=== PATIENT | male | born 1950 | race Caucasian/White ===

== ENCOUNTER → 2017-12-30 09:23 | Outpatient (CLI) | payer MEDICARE, BC, SELFPAY ==
[2017-12-30 12:48] LABS: Absolute Lymphocyte Count 1.57 X10^3/ul (0.83-4.51); Absolute Neutrophil Count 4.5 X10^3/uL (2.0-7.7); Basophil# 0.04 X10^3/uL; Basophil% 0.6 % (0-1); Eosinophil# 0.09 X10^3/uL; Eosinophils% 1.3 % (0-5); Hemoglobin 15.6 g/dl (13.0-16.5); Lymphocyte # 1.57 X10^3/ul (4.0); Mean Corp Hgb Conc 34.7 g/gl (32-36); Mean Corpuscular Hgb 30.4 pg (27.0-32.0); Mean Corpuscular Volume 87.5 fL (80-94); Mean Platelet Vol. 9.1 fl (6.2-12.0); Monocyte# 0.63 X10^3/uL; Monocyte% 9.2 % (0-10); Neutrophil # 4.49 X10^3/uL (2.7-7.7); Neutrophil % 65.8 % (47-70); Platelet Count 403 K/mm3 (150-450); RBC Distribution Width CV 12.6 % (11.6-14.6); Red Blood Count 5.14 M/mm3 (4.6-6.2); White Blood Count 6.8 K/mm3 (4.4-11.0)
[2017-12-30 12:51] LABS: POSITIVE COUNT NO; POSITIVE DIFFERENTIAL NO; POSITIVE MORPHOLOGY NO
[2017-12-30 13:05] LABS: AST(SGOT) 20 U/L (15-37); Alanine Aminotransfer ALT/SGPT 35 U/L (16-61); Albumin, Serum 4.2 g/dL (3.2-5.0); Alkaline Phosphatase 111 U/L (45-117); Anion Gap 6 (5-15); BUN 12 mg/dL (7-18); Calcium,Total 9.4 mg/dL (8.5-10.1); Chloride 94 mmol/L (98-107); EST Glomerular Filtration Rate 80 mL/min (>60); Est Glom Filt Rate - Afr Amer 96 mL/min (>60); Globulin 4.2 g/dL (2.2-4.2); Glucose 123 mg/dL (74-106); Potassium 4.6 mmol/L (3.5-5.1); Protein, Total 8.4 g/dL (6.4-8.2); Sodium Level 130 mmol/L (136-145); Thyroid Stim Hormone (TSH) 1.43 uIU/mL (0.358-3.74)
[2017-12-30 13:06] LABS: Vitamin D,25 Hydroxy 23.1 ng/mL (29.95-100.01)
== END ==
PROVIDERS: Family Provider Family Medicine Geriatric Medicine; PCP Family Medicine Geriatric Medicine; Visit Provider Family Medicine Geriatric Medicine
DX: I10 Essential (primary) hypertension (principal); E55.9 Vitamin D deficiency, unspecified
CPT/HCPCS: 36415; 80053; 82306; 84443; 85025

== ENCOUNTER → 2018-07-31 12:36 | Outpatient (CLI) | payer MEDICARE, BC, SELFPAY ==
--- NOTE | 2018-07-31 12:43 | RAD_ITS ---
STUDY: X-RAY CHEST REASON FOR EXAM: Male, 67 years old. Cough and shortness of breath. TECHNIQUE: PA and lateral views of the chest. COMPARISON: None. FINDINGS: Hyperinflation. No acute infiltrate is seen. Blunting of both costophrenic angles posteriorly. Normal size heart. Normal mediastinum and raymond. Normal visualized pulmonary arteries. There is atherosclerotic calcification of the aortic arch with tortuosity. There is demineralization of the osseous structures. Normal visualized ribs, clavicles, and shoulders. There is no demonstrated abnormality of the visualized soft tissue structures of the upper abdomen. RAD/Chest PA and Lateral IMPRESSION: Hyperinflation. No acute abnormality is seen. Electronically Signed: Zaki Martin MD at 13:56 EST , Service support ,
== END ==
PROVIDERS: Family Provider Family Medicine Geriatric Medicine; PCP Family Medicine Geriatric Medicine; Referring Provider Family Medicine Geriatric Medicine; Visit Provider Family Medicine Geriatric Medicine
DX: R06.02 Shortness of breath (principal); R50.9 Fever, unspecified
CPT/HCPCS: 71046; 87633

== ENCOUNTER → 2018-08-28 11:31 | Outpatient (CLI) | payer MEDICARE, BC, SELFPAY ==
[2018-08-28 14:23] LABS: Absolute Lymphocyte Count 1.65 X10^3/ul (0.83-4.51); Absolute Neutrophil Count 6.1 X10^3/uL (2.0-7.7); Basophil# 0.04 X10^3/uL; Basophil% 0.5 % (0-1); Eosinophil# 0.09 X10^3/uL; Hemoglobin 14.6 g/dl (13.0-16.5); Lymphocyte # 1.65 X10^3/ul (4.0); Mean Corpuscular Hgb 30.4 pg (27.0-32.0); Mean Corpuscular Volume 89.6 fL (80-94); Mean Platelet Vol. 8.8 fl (6.2-12.0); Monocyte# 0.82 X10^3/uL; Monocyte% 9.4 % (0-10); Neutrophil # 6.05 X10^3/uL (2.7-7.7); Neutrophil % 69.8 % (47-70); Platelet Count 374 K/mm3 (150-450); RBC Distribution Width SD 42.2 fl (35.1-43.9); White Blood Count 8.7 K/mm3 (4.4-11.0)
[2018-08-28 14:24] LABS: POSITIVE COUNT NO; POSITIVE DIFFERENTIAL NO; POSITIVE MORPHOLOGY NO
[2018-08-28 14:31] LABS: Vitamin D,25 Hydroxy 11.6 ng/mL (29.95-100.01)
[2018-08-28 14:50] LABS: ALB/GLOB Ratio 1.2 RATIO (0.9-2.4); AST(SGOT) 16 U/L (15-37); Alanine Aminotransfer ALT/SGPT 32 U/L (16-61); Albumin, Serum 4.5 g/dL (3.2-5.0); Alkaline Phosphatase 98 U/L (45-117); Anion Gap 7 (5-15); BUN 15 mg/dL (7-18); Calcium,Total 9.1 mg/dL (8.5-10.1); Chloride 90 mmol/L (98-107); EST Glomerular Filtration Rate 79 mL/min (>60); Est Glom Filt Rate - Afr Amer 96 mL/min (>60); Globulin 3.8 g/dL (2.2-4.2); Glucose 114 mg/dL (74-106); Potassium 4.7 mmol/L (3.5-5.1); Protein, Total 8.3 g/dL (6.4-8.2); Sodium Level 127 mmol/L (136-145)
== END ==
PROVIDERS: Family Provider Family Medicine Geriatric Medicine; PCP Family Medicine Geriatric Medicine; Visit Provider Family Medicine Geriatric Medicine
DX: I10 Essential (primary) hypertension (principal); E55.9 Vitamin D deficiency, unspecified; Z12.5 Encounter for screening for malignant neoplasm of prostate
CPT/HCPCS: 36415; 80053; 82306; 84153; 84443; 85025; G0103

== ENCOUNTER → 2019-03-02 09:28 | Outpatient (CLI) | payer MEDICARE, SELFPAY ==
[2019-03-02 12:05] LABS: Absolute Lymphocyte Count 1.24 X10^3/uL (0.83-4.51); Absolute Neutrophil Count 5.6 X10^3/uL (2.0-7.7); Basophil# 0.06 X10^3/uL; Basophil% 0.8 % (0-1); Eosinophil# 0.06 X10^3/uL; Eosinophils% 0.8 % (0-5); Hematocrit 50.1 % (40-54); Lymphocyte # 1.24 X10^3/ul (4.0); Mean Corp Hgb Conc 33.9 g/dL (32-36); Mean Corpuscular Hgb 29.4 pg (27.0-32.0); Mean Corpuscular Volume 86.5 fL (80-94); Mean Platelet Vol. 8.9 fl (6.2-12.0); Monocyte# 0.77 X10^3/uL; Monocyte% 9.9 % (0-10); NRBC Flagged by Analyzer 0 % (0-5); Neutrophil # 5.58 X10^3/uL (2.7-7.7); Neutrophil % 71.9 % (47-70); Platelet Count 433 K/mm3 (150-450); RBC Distribution Width CV 12.7 % (11.6-14.6); RBC Distribution Width SD 39.8 fl (35.1-43.9); Red Blood Count 5.79 M/mm3 (4.6-6.2); White Blood Count 7.8 K/mm3 (4.4-11.0)
[2019-03-02 12:30] LABS: ALB/GLOB Ratio 1.1 RATIO (0.9-2.4); AST(SGOT) 22 U/L (15-37); Alanine Aminotransfer ALT/SGPT 44 U/L (16-61); Albumin, Serum 4.2 g/dL (3.2-5.0); Alkaline Phosphatase 106 U/L (45-117); Anion Gap 8 (5-15); BUN 11 mg/dL (7-18); BUN/Creat Ratio 12.2 RATIO (10-20); Calcium,Total 9.1 mg/dL (8.5-10.1); Chloride 87 mmol/L (98-107); EST Glomerular Filtration Rate 89 mL/min (>60); Est Glom Filt Rate - Afr Amer 108 mL/min (>60); Globulin 3.9 g/dL (2.2-4.2); Glucose 121 mg/dL (74-106); Potassium 4.8 mmol/L (3.5-5.1); Protein, Total 8.1 g/dL (6.4-8.2); Sodium Level 126 mmol/L (136-145); Thyroid Stim Hormone (TSH) 1.09 uIU/mL (0.358-3.74)
== END ==
PROVIDERS: Family Provider Family Medicine Geriatric Medicine; PCP Family Medicine Geriatric Medicine; Visit Provider Family Medicine Geriatric Medicine
DX: I10 Essential (primary) hypertension (principal); E55.9 Vitamin D deficiency, unspecified
CPT/HCPCS: 36415; 80053; 82306; 84403; 84443; 85025

== ENCOUNTER → 2019-03-03 10:00 | Outpatient (CLI) | payer MEDICARE, SELFPAY ==
[2019-03-03 11:51] LABS: Vitamin D,25 Hydroxy 45.3 ng/mL (29.95-100.01)
== END ==
PROVIDERS: Family Provider Family Medicine Geriatric Medicine; PCP Family Medicine Geriatric Medicine; Visit Provider Family Medicine Geriatric Medicine
DX: I10 Essential (primary) hypertension (principal); E55.9 Vitamin D deficiency, unspecified; F52.8 Other sexual dysfunction not due to a substance or known physiological condition
CPT/HCPCS: 82306; 84403

== ENCOUNTER → 2019-10-22 09:56 | Outpatient (CLI) | payer MEDICARE, SELFPAY ==
[2019-10-22 12:31] LABS: Absolute Lymphocyte Count 1.35 X10^3/uL (0.83-4.51); Absolute Neutrophil Count 4.7 X10^3/uL (2.0-7.7); Basophil# 0.07 X10^3/uL; Eosinophil# 0.07 X10^3/uL; Hematocrit 47.8 % (40-54); Hemoglobin 16.4 g/dL (13.0-16.5); Lymphocyte # 1.35 X10^3/ul (4.0); Lymphocyte % 19.1 % (19-41); Mean Corp Hgb Conc 34.3 g/dL (32-36); Mean Corpuscular Hgb 29.9 pg (27.0-32.0); Mean Corpuscular Volume 87.2 fL (80-94); Mean Platelet Vol. 8.9 fl (6.2-12.0); Monocyte# 0.81 X10^3/uL; Monocyte% 11.5 % (0-10); NRBC Flagged by Analyzer 0 % (0-5); Neutrophil # 4.73 X10^3/uL (2.7-7.7); Neutrophil % 66.8 % (47-70); Platelet Count 366 K/mm3 (150-450); RBC Distribution Width CV 13.2 % (11.6-14.6); RBC Distribution Width SD 41.5 fl (35.1-43.9); Red Blood Count 5.48 M/mm3 (4.6-6.2); White Blood Count 7.1 K/mm3 (4.4-11.0)
[2019-10-22 12:54] LABS: Vitamin D,25 Hydroxy 26.1 ng/mL
[2019-10-22 13:14] LABS: ALB/GLOB Ratio 1.1 RATIO (0.9-2.4); AST(SGOT) 26 U/L (15-37); Alanine Aminotransfer ALT/SGPT 63 U/L (16-61); Albumin, Serum 4.3 g/dL (3.2-5.0); Alkaline Phosphatase 91 U/L (45-117); Anion Gap 10 (5-15); BUN 10 mg/dL (7-18); Calcium,Total 9.6 mg/dL (8.5-10.1); Chloride 89 mmol/L (98-107); EST Glomerular Filtration Rate 79 mL/min (>60); Est Glom Filt Rate - Afr Amer 96 mL/min (>60); Globulin 3.8 g/dL (2.2-4.2); Glucose 119 mg/dL (74-106); PSA,Total - Annual Screen 0.58 ng/mL (0.00-4.00); Potassium 4.4 mmol/L (3.5-5.1); Protein, Total 8.1 g/dL (6.4-8.2); Sodium Level 129 mmol/L (136-145); Thyroid Stim Hormone (TSH) 1.06 uIU/mL (0.358-3.74)
== END ==
PROVIDERS: PCP Family Medicine Geriatric Medicine; Visit Provider Family Medicine Geriatric Medicine
DX: I10 Essential (primary) hypertension (principal); E55.9 Vitamin D deficiency, unspecified; Z12.5 Encounter for screening for malignant neoplasm of prostate
CPT/HCPCS: 36415; 80053; 82306; 84153; 84443; 85025; G0103

== ENCOUNTER → 2020-01-06 12:18 | Outpatient (CLI) | payer MEDICARE, SELFPAY ==
[2020-01-06 13:25] LABS: Urine Sodium 58 mmol/L (Not Establ.)
[2020-01-06 13:37] LABS: Albumin, Serum 4.2 g/dL (3.2-5.0); BUN 8 mg/dL (7-18); BUN/Creat Ratio 9.3 RATIO (10-20); Calcium,Total 9.1 mg/dL (8.5-10.1); Chloride 85 mmol/L (98-107); Creatinine, Serum 0.86 mg/dL (0.70-1.30); EST Glomerular Filtration Rate 94 mL/min (>60); Est Glom Filt Rate - Afr Amer 114 mL/min (>60); Glucose 104 mg/dL (74-106); Phosphorus 4.4 mg/dL (2.5-4.9); Potassium 4.7 mmol/L (3.5-5.1); Sodium Level 122 mmol/L (136-145)
[2020-01-06 13:38] LABS: Osmolality, Serum 260 mOsm/KG (280-301); Osmolality, Urine 463 mOsm/KG
== END ==
PROVIDERS: PCP Family Medicine Geriatric Medicine; Visit Provider Family Medicine Geriatric Medicine
DX: E87.1 Hypo-osmolality and hyponatremia (principal)
CPT/HCPCS: 36415; 80069; 83930; 83935; 84300

== ENCOUNTER → 2020-02-03 09:36 | Outpatient (CLI) | payer MEDICARE, OTHER, SELFPAY ==
[2020-02-03 11:39] LABS: Albumin, Serum 4.1 g/dL (3.2-5.0); BUN 8 mg/dL (7-18); BUN/Creat Ratio 8.7 RATIO (10-20); Calcium,Total 8.8 mg/dL (8.5-10.1); Chloride 91 mmol/L (98-107); Creatinine, Serum 0.92 mg/dL (0.70-1.30); EST Glomerular Filtration Rate 87 mL/min (>60); Est Glom Filt Rate - Afr Amer 105 mL/min (>60); Glucose 102 mg/dL (74-106); Phosphorus 4.1 mg/dL (2.5-4.9); Potassium 4.4 mmol/L (3.5-5.1); Sodium Level 128 mmol/L (136-145)
== END ==
PROVIDERS: PCP Family Medicine Geriatric Medicine; Referring Provider Internal Medicine Nephrology; Visit Provider Internal Medicine Nephrology
DX: E87.1 Hypo-osmolality and hyponatremia (principal)
CPT/HCPCS: 36415; 80069

== ENCOUNTER → 2020-02-16 | Outpatient (CLI) | payer MEDICARE, OTHER, SELFPAY ==
[2020-02-16 12:41] LABS: Urine Sodium 70 mmol/L (Not Establ.)
== END | disposition home or self-care (01) ==
LOC: POLAB3 11:50 → LABSPEC 11:51
PROVIDERS: PCP Family Medicine Geriatric Medicine; Visit Provider Internal Medicine Nephrology
DX: E87.1 Hypo-osmolality and hyponatremia (principal)
CPT/HCPCS: 84300

== ENCOUNTER → 2020-03-18 10:21 | Outpatient (CLI) | payer MEDICARE, OTHER, SELFPAY ==
[2020-03-18 11:56] LABS: Albumin, Serum 4.2 g/dL (3.2-5.0); BUN 9 mg/dL (7-18); BUN/Creat Ratio 9.5 RATIO (10-20); Calcium,Total 9.3 mg/dL (8.5-10.1); Chloride 94 mmol/L (98-107); Creatinine, Serum 0.95 mg/dL (0.70-1.30); EST Glomerular Filtration Rate 84 mL/min (>60); Est Glom Filt Rate - Afr Amer 101 mL/min (>60); Glucose 123 mg/dL (74-106); Phosphorus 4.5 mg/dL (2.5-4.9); Potassium 4.4 mmol/L (3.5-5.1); Sodium Level 131 mmol/L (136-145)
== END ==
PROVIDERS: PCP Family Medicine Geriatric Medicine; Visit Provider Internal Medicine Nephrology
DX: E87.1 Hypo-osmolality and hyponatremia (principal)
CPT/HCPCS: 36415; 80069

== ENCOUNTER → 2020-04-21 10:09 | Outpatient (CLI) | payer MEDICARE, OTHER, SELFPAY ==
[2020-04-21 12:32] LABS: Absolute Lymphocyte Count 1.18 X10^3/uL (0.83-4.51); Absolute Neutrophil Count 4.5 X10^3/uL (2.0-7.7); Basophil# 0.06 X10^3/uL; Basophil% 0.9 % (0-1); Eosinophil# 0.07 X10^3/uL; Eosinophils% 1.1 % (0-5); Hematocrit 47.5 % (40-54); Hemoglobin 15.8 g/dL (13.0-16.5); Lymphocyte # 1.18 X10^3/ul (4.0); Lymphocyte % 18.5 % (19-41); Mean Corp Hgb Conc 33.3 g/dL (32-36); Mean Corpuscular Hgb 30.2 pg (27.0-32.0); Mean Corpuscular Volume 90.8 fL (80-94); Mean Platelet Vol. 8.8 fl (6.2-12.0); Monocyte# 0.58 X10^3/uL; Monocyte% 9.1 % (0-10); NRBC Flagged by Analyzer 0 % (0-5); Neutrophil # 4.45 X10^3/uL (2.7-7.7); Neutrophil % 69.9 % (47-70); Platelet Count 418 K/mm3 (150-450); RBC Distribution Width CV 12.8 % (11.6-14.6); RBC Distribution Width SD 42.1 fl (35.1-43.9); Red Blood Count 5.23 M/mm3 (4.6-6.2); White Blood Count 6.4 K/mm3 (4.4-11.0)
[2020-04-21 12:45] LABS: Vitamin D,25 Hydroxy 17.1 ng/mL
[2020-04-21 12:58] LABS: ALB/GLOB Ratio 1.1 RATIO (0.9-2.4); AST(SGOT) 18 U/L (15-37); Alanine Aminotransfer ALT/SGPT 34 U/L (16-61); Albumin, Serum 4.1 g/dL (3.2-5.0); Alkaline Phosphatase 111 U/L (45-117); Anion Gap 5 (5-15); BUN 9 mg/dL (7-18); Chloride 94 mmol/L (98-107); EST Glomerular Filtration Rate 79 mL/min (>60); Est Glom Filt Rate - Afr Amer 96 mL/min (>60); Globulin 3.9 g/dL (2.2-4.2); Glucose 133 mg/dL (74-106); Potassium 4.8 mmol/L (3.5-5.1); Sodium Level 130 mmol/L (136-145); Thyroid Stim Hormone (TSH) 0.89 uIU/mL (0.358-3.74)
== END ==
PROVIDERS: Internal Medicine Nephrology; PCP Family Medicine Geriatric Medicine; Visit Provider Family Medicine Geriatric Medicine
DX: I10 Essential (primary) hypertension (principal); E55.9 Vitamin D deficiency, unspecified; E87.1 Hypo-osmolality and hyponatremia
CPT/HCPCS: 36415; 80053; 82306; 84443; 85025

== ENCOUNTER → 2020-10-24 12:03 | Outpatient (CLI) | payer MEDICARE, OTHER, SELFPAY ==
[2020-10-24 12:54] LABS: Absolute Lymphocyte Count 0.89 X10^3/uL (0.83-4.51); Absolute Neutrophil Count 3.7 X10^3/uL (2.0-7.7); Basophil# 0.04 X10^3/uL; Basophil% 0.8 % (0-1); Eosinophil# 0.03 X10^3/uL; Eosinophils% 0.6 % (0-5); Hematocrit 41.9 % (40-54); Hemoglobin 14.3 g/dL (13.0-16.5); Lymphocyte # 0.89 X10^3/ul (0.83-4.51); Mean Corp Hgb Conc 34.1 g/dL (32-36); Mean Corpuscular Hgb 29.2 pg (27.0-32.0); Mean Corpuscular Volume 85.5 fL (80-94); Mean Platelet Vol. 8.5 fl (6.2-12.0); Monocyte# 0.55 X10^3/uL; Monocyte% 10.5 % (0-10); NRBC Flagged by Analyzer 0 % (0-5); Neutrophil % 70.5 % (47-70); Platelet Count 358 K/mm3 (150-450); RBC Distribution Width CV 13.2 % (11.6-14.6); RBC Distribution Width SD 40.8 fl (35.1-43.9); White Blood Count 5.2 K/mm3 (4.4-11.0)
[2020-10-24 13:12] LABS: Vitamin D,25 Hydroxy 13.2 ng/mL
[2020-10-24 13:25] LABS: ALB/GLOB Ratio 1.2 RATIO (0.9-2.4); AST(SGOT) 18 U/L (15-37); Alanine Aminotransfer ALT/SGPT 35 U/L (16-61); Albumin, Serum 4.1 g/dL (3.2-5.0); Alkaline Phosphatase 82 U/L (45-117); Anion Gap 6 (5-15); BUN 10 mg/dL (7-18); BUN/Creat Ratio 9.3 RATIO (10-20); Calcium,Total 8.9 mg/dL (8.5-10.1); Chloride 90 mmol/L (98-107); Creatinine, Serum 1.07 mg/dL (0.70-1.30); EST Glomerular Filtration Rate 73 mL/min (>60); Est Glom Filt Rate - Afr Amer 88 mL/min (>60); Globulin 3.5 g/dL (2.2-4.2); Glucose 106 mg/dL (74-106); PSA,Total - Annual Screen 0.58 ng/mL (0.00-4.00); Potassium 4.5 mmol/L (3.5-5.1); Protein, Total 7.6 g/dL (6.4-8.2); Sodium Level 127 mmol/L (136-145); Thyroid Stim Hormone (TSH) 1.24 uIU/mL (0.358-3.74)
== END ==
PROVIDERS: PCP Family Medicine Geriatric Medicine; Visit Provider Family Medicine Geriatric Medicine
DX: Z12.5 Encounter for screening for malignant neoplasm of prostate (principal); I10 Essential (primary) hypertension; E55.9 Vitamin D deficiency, unspecified
CPT/HCPCS: 36415; 80053; 82306; 84153; 84443; 85025; G0103

== ENCOUNTER → 2020-10-26 10:00 | Outpatient (CLI) | payer MEDICARE, OTHER, SELFPAY ==
[2020-10-26 12:54] LABS: Urine Sodium 54 mmol/L (Not Establ.)
[2020-10-26 12:56] LABS: Anion Gap 6 (5-15); BUN 9 mg/dL (7-18); BUN/Creat Ratio 8.4 RATIO (10-20); Calcium,Total 9.2 mg/dL (8.5-10.1); Chloride 92 mmol/L (98-107); Creatinine, Serum 1.07 mg/dL (0.70-1.30); EST Glomerular Filtration Rate 73 mL/min (>60); Est Glom Filt Rate - Afr Amer 88 mL/min (>60); Glucose 105 mg/dL (74-106); Potassium 4.6 mmol/L (3.5-5.1); Sodium Level 128 mmol/L (136-145)
[2020-10-26 14:33] LABS: Osmolality, Serum 272 mOsm/KG (280-301); Osmolality, Urine 379 mOsm/KG
== END ==
PROVIDERS: PCP Family Medicine Geriatric Medicine; Visit Provider Family Medicine Geriatric Medicine
DX: E87.1 Hypo-osmolality and hyponatremia (principal)
CPT/HCPCS: 36415; 80048; 83930; 83935; 84300

== ENCOUNTER → 2020-11-08 10:37 | Outpatient (CLI) | payer MEDICARE, OTHER, SELFPAY ==
[2020-11-08 12:51] LABS: Anion Gap 7 (5-15); BUN 9 mg/dL (7-18); BUN/Creat Ratio 8.3 RATIO (10-20); Calcium,Total 8.9 mg/dL (8.5-10.1); Chloride 94 mmol/L (98-107); Creatinine, Serum 1.09 mg/dL (0.70-1.30); EST Glomerular Filtration Rate 71 mL/min (>60); Est Glom Filt Rate - Afr Amer 86 mL/min (>60); Glucose 117 mg/dL (74-106); Potassium 4.2 mmol/L (3.5-5.1); Sodium Level 132 mmol/L (136-145)
== END ==
PROVIDERS: PCP Family Medicine Geriatric Medicine; Visit Provider Family Medicine Geriatric Medicine
DX: E87.1 Hypo-osmolality and hyponatremia (principal)
CPT/HCPCS: 36415; 80048

== ENCOUNTER → 2020-11-11 11:47 | Outpatient (CLI) | payer MEDICARE, OTHER, SELFPAY ==
[2020-11-11 12:21] LABS: Absolute Lymphocyte Count 0.82 X10^3/uL (0.83-4.51); Absolute Neutrophil Count 3.5 X10^3/uL (2.0-7.7); Basophil# 0.04 X10^3/uL; Basophil% 0.8 % (0-1); Eosinophil# 0.02 X10^3/uL; Eosinophils% 0.4 % (0-5); Hematocrit 42.1 % (40-54); Hemoglobin 14.4 g/dL (13.0-16.5); Lymphocyte # 0.82 X10^3/ul (0.83-4.51); Lymphocyte % 16.7 % (19-41); Mean Corp Hgb Conc 34.2 g/dL (32-36); Mean Corpuscular Hgb 29.6 pg (27.0-32.0); Mean Corpuscular Volume 86.4 fL (80-94); Mean Platelet Vol. 8.4 fl (6.2-12.0); Monocyte# 0.57 X10^3/uL; Monocyte% 11.6 % (0-10); NRBC Flagged by Analyzer 0 % (0-5); Neutrophil # 3.45 X10^3/uL (2.7-7.7); Neutrophil % 70.1 % (47-70); Platelet Count 344 K/mm3 (150-450); RBC Distribution Width CV 13.2 % (11.6-14.6); Red Blood Count 4.87 M/mm3 (4.6-6.2); White Blood Count 4.9 K/mm3 (4.4-11.0)
[2020-11-11 12:47] LABS: Alcohol, Blood (Medical)-Serum < 3.0 mg/dL
[2020-11-11 12:55] LABS: ALB/GLOB Ratio 1.1 RATIO (0.9-2.4); AST(SGOT) 11 U/L (15-37); Alanine Aminotransfer ALT/SGPT 25 U/L (16-61); Alkaline Phosphatase 78 U/L (45-117); Anion Gap 6 (5-15); BUN 11 mg/dL (7-18); BUN/Creat Ratio 10.3 RATIO (10-20); Calcium,Total 8.7 mg/dL (8.5-10.1); Chloride 95 mmol/L (98-107); Creatinine, Serum 1.07 mg/dL (0.70-1.30); EST Glomerular Filtration Rate 73 mL/min (>60); Est Glom Filt Rate - Afr Amer 88 mL/min (>60); Globulin 3.6 g/dL (2.2-4.2); Glucose 99 mg/dL (74-106); Potassium 4.4 mmol/L (3.5-5.1); Protein, Total 7.6 g/dL (6.4-8.2); Sodium Level 132 mmol/L (136-145); Thyroid Stim Hormone (TSH) 1.01 uIU/mL (0.358-3.74)
== END ==
PROVIDERS: PCP Family Medicine Geriatric Medicine; Visit Provider Family Medicine Geriatric Medicine
DX: F10.10 Alcohol abuse, uncomplicated (principal); I10 Essential (primary) hypertension
CPT/HCPCS: 36415; 80053; 82077; 84443; 85025

== ENCOUNTER 2020-12-25 11:08 | Emergency (ER) | payer MEDICARE, OTHER, SELFPAY ==
[2020-12-25 11:09] VITALS: BP 203/86; PULSE 66; RESP 18; TEMP 36.9; O2SAT 96; BMI 25.0
--- NOTE | 2020-12-25 11:35 | RAD_ITS ---
STUDY: X-RAY CHEST REASON FOR EXAM: Male, 70 years old. Weakness TECHNIQUE: Single AP portable view of the chest. COMPARISON: 07/31/2018 chest x-ray FINDINGS: The lungs are clear and expanded. There is no demonstrated pleural abnormality. There is borderline cardiomegaly. Normal mediastinum and raymond. Normal visualized pulmonary arteries. There is atherosclerotic calcification of the aortic arch with tortuosity. There are diffuse degenerative changes of the visualized thoracic spine. Normal visualized ribs, clavicles, and shoulders. There is no demonstrated abnormality of the visualized soft tissue structures of the upper abdomen. RAD/Chest 1 View (Portable) IMPRESSION: Degenerative changes, as described above. No demonstrated acute cardiopulmonary process. Electronically Signed: Chey Mcghee MD at 12:21 EDT Tel , Service support ,
--- NOTE | 2020-12-25 11:36 | EKG12_ITS ---
Test Reason : ALCOHOL Blood Pressure : / mmHG Vent. Rate : 060 BPM Atrial Rate : 060 BPM P-R Int : 172 ms QRS Dur : 082 ms QT Int : 466 ms P-R-T Axes : 075 060 093 degrees QTc Int : 466 ms Normal sinus rhythm Normal ECG Confirmed by KAISER RICHEY, LOLIS ([id number]), supervising editor news reel RANDY HUFFMAN ([id number]) on 12/26/2020 11:48:37 AM Referred By: MARY Confirmed By:LOLIS SAAB MD
[2020-12-25] MEDS: LORazepam 2 MG/ML Syringe 0.5 MG IV (11:49)
--- NOTE | 2020-12-25 11:57 | EDS_ITS ---
HPI History of Present Illness Chief Complaint: ETOH Intox Informant: patient and family Narrative Narrative: Patient is a 70-year-old male present with his son for concerns of generalized malaise. Patient states that his PCP, Dr. Wade, diagnosed him with hyponatremia bout a month ago. That was treated with fluid restrictions and at that time he was told he did stop drinking. Patient was previously drinking 6 pack of beer daily. He was prescribed lorazepam 1 mg which he has been taking twice a day but ran out 2 days ago. Since then he has been feeling much worse. He states he is having hot and cold chills, feeling shaky and headaches. He states he just feels very lousy. He is not had a drink in 1 month. He denies any chest pain, shortness of breath or difficulty breathing. He denies any GI or symptoms. No other complaints at this time. No fever. [facility] Medical History Alcohol abuse Hypertension Home Medications lorazepam 1 mg PO DAILY PRN #10 tab 12/25/20 [Rx Last Taken Unknown] Allergy/AdvReac Type Severity Reaction Status Date / Time No Known Allergies Allergy Verified 12/25/20 11:10 Social History Smoking Status: Former smoker ROS ROS ED Constitutional Constitutional ED: Reports other Details: malaise ; Denies chills or fever(s) Eyes Eyes: Denies blurry vision or change in vision ENT ENT ED: Denies rhinorrhea or sore throat Cardiovascular Cardiovascular: Denies chest pain or palpitations Respiratory/Chest Respiratory/Chest: Denies cough or dyspnea Gastrointestinal Gastrointestinal: Denies abdominal pain, nausea or vomiting Genitourinary Genitourinary ED: Denies dysuria or hematuria Musculoskeletal Musculoskeletal: Denies arthralgias or myalgias Integumentary Denies rash Neurologic Neurologic: Reports headache(s) and weakness Psychiatric Psychiatric: Reports anxiety; Denies depression EXAM Physical Exam Const Vital Signs: 12/25/20 11:09 12/25/20 12:46 Temperature 98.4 F Temperature Source Temporal Pulse Rate 66 58 L Respiratory Rate 18 16 Blood Pressure 203/86 H 161/79 H Blood Pressure Mean 125 106 Pulse Ox 96 97 Oxygen Delivery Method Room Air Room Air Positive well nourished and well developed General Appearance ED: well developed HEENT Reports moist mucous membranes Negative for tenderness Eyes PERRL and EOMs intact bilaterally Neck supple and no JVD Chest Wall inspection of chest normal Resp normal respiratory effort and clear to auscultation bilaterally Cardio regular rate and regular rhythm GI normal to inspection, nondistended, normoactive bowel sounds Extremity normal to inspection General Extremety ED: Negative for edema or tenderness General Extremity: Negative for edema Neuro oriented x3 and CN's II-XII intact bilaterally Sensorium / Orientation: alert and other no tremor Psych mental status grossly normal Skin no rashes or lesions noted MDM MDM MDM Narrative Medical decision making narrative: Patient is evaluated for generalized malaise and feeling like he is going to alcohol withdrawal. He ran out of his lorazepam 2 days ago so he probably is starting to go through benzodiazepine withdrawal. He is hypertensive but is not tachycardic. He has a normal neurologic exam. He is given IV Ativan with significant improvement of his symptoms. His work-up is largely unremarkable. He has a very mild hyponatremia however patient is currently on a fluid restriction for this. Did discuss with his PCP the fact that he is not been tapering his lorazepam and ran out which precipitated withdrawal symptoms. His PCP will follow up with him. Patient is counseled that he will need to eventually taper his lorazepam and cannot stop it cold turkey. 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 Patient is counseled that should he change his mind we would be able to admit him for benzodiazepine detox. Lab Data Labs: Laboratory Results - last 24 hr 12/25/20 12/25/20 12/25/20 11:50 11:50 11:50 WBC 6.1 RBC 4.63 Hgb 13.7 Hct 39.3 L MCV 84.9 MCH 29.6 MCHC 34.9 RDW Std Deviation 38.5 RDW Coeff of Milly 12.5 Plt Count 312 MPV 9.1 Immature Gran % (Auto) 0.300 Neut % (Auto) 73.3 H Lymph % (Auto) 16.3 L Addison % (Auto) 8.8 Eos % (Auto) 0.5 Baso % (Auto) 0.8 Absolute Neuts (auto) 4.5 Absolute Lymphs (auto) 1.00 Nucleated RBC % 0 Sodium 134 L Potassium 4.1 Chloride 98 Carbon Dioxide 30.0 Anion Gap 6 BUN 11 Creatinine 0.95 Estim Creat Clear Calc 73.39 Est GFR (MDRD) Af Amer 101 Est GFR (MDRD) Non-Af 83 BUN/Creatinine Ratio 11.5 Glucose 101 Calcium 8.5 Total Bilirubin 0.60 AST 11 L ALT 23 Alkaline Phosphatase 95 Troponin I High Sens 4.3 Total Protein 7.5 Albumin 3.9 Globulin 3.6 Albumin/Globulin Ratio 1.1 TSH 1.31 Urine Opiates Screen Urine Methadone Screen Ur Barbiturates Screen Ur Phencyclidine Scrn Ur Amphetamines Screen U Methamphetamin-MDMA U Benzodiazepines Scrn Urine Cocaine Screen U Cannabinoids Screen Ur Drug Screen Comment Ethyl Alcohol < 3.0 12/25/20 12:50 WBC RBC Hgb Hct MCV MCH MCHC RDW Std Deviation RDW Coeff of Milly Plt Count MPV Immature Gran % (Auto) Neut % (Auto) Lymph % (Auto) Addison % (Auto) Eos % (Auto) Baso % (Auto) Absolute Neuts (auto) Absolute Lymphs (auto) Nucleated RBC % Sodium Potassium Chloride Carbon Dioxide Anion Gap BUN Creatinine Estim Creat Clear Calc Est GFR (MDRD) Af Amer Est GFR (MDRD) Non-Af BUN/Creatinine Ratio Glucose Calcium Total Bilirubin AST ALT Alkaline Phosphatase Troponin I High Sens Total Protein Albumin Globulin Albumin/Globulin Ratio TSH Urine Opiates Screen NEGATIVE Urine Methadone Screen NEGATIVE Ur Barbiturates Screen NEGATIVE Ur Phencyclidine Scrn NEGATIVE Ur Amphetamines Screen NEGATIVE U Methamphetamin-MDMA NEGATIVE U Benzodiazepines Scrn NEGATIVE Urine Cocaine Screen NEGATIVE U Cannabinoids Screen NEGATIVE Ur Drug Screen Comment Ethyl Alcohol Radiography Chest X-Ray - ED: 1 View, Read by ED Physician and No Acute Disease Diagnostic Testing: Radiology Impression Chest X-Ray 12/25/20 11:35 IMPRESSION: Degenerative changes, as described above. No demonstrated acute cardiopulmonary process. Electronically Signed: Chey Mcghee MD at 12:21 EDT Tel , Service support , Rhythm Strip Rhythm Strip: Sinus Rhythm Rate: 60 Ectopy: None EKG Initial EKG: Attestation: I personally reviewed and interpreted this EKG as follows: Interpretation: Sinus Rhythm Comments: Normal sinus rhythm at a rate of 60 Normal axis Normal intervals Normal ST segments No change prior to prior EKG on 12/16/2012 Discharge Plan Triage Chief Complaint: ETOH Intox ED Provider: Moira Garsia Dx/Rx/DC Orders Clinical Impression: Benzodiazepine withdrawal Instructions: ED Withdrawal Alcohol, ED Benzodiazepine Withdrawal Prescriptions: New lorazepam 1 mg tablet 1 mg PO DAILY PRN (Reason: alcohol withdrawal) Qty: 10 RF: 0 Primary Care Provider: Gamaliel Wade Chi Referrals: Gamaliel Wade Chi, MD [Primary Care Provider] - Activity Restrictions/Additional Instructions: Please follow-up with Dr. Wade for further refill as needed. You will eventually need to taper off of the lorazepam and not stop it cold turkey. Do not stop taking it all of a sudden. Disposition Disposition: Home, Self Care Discharge Date/Time: 12/25/20 14:35
[2020-12-25 11:58] LABS: Absolute Neutrophil Count 4.5 X10^3/uL (2.0-7.7); Basophil# 0.05 X10^3/uL; Basophil% 0.8 % (0-1); Eosinophil# 0.03 X10^3/uL; Eosinophils% 0.5 % (0-5); Hematocrit 39.3 % (40-54); Hemoglobin 13.7 g/dL (13.0-16.5); Lymphocyte % 16.3 % (19-41); Mean Corp Hgb Conc 34.9 g/dL (32-36); Mean Corpuscular Hgb 29.6 pg (27.0-32.0); Mean Corpuscular Volume 84.9 fL (80-94); Mean Platelet Vol. 9.1 fl (6.2-12.0); Monocyte# 0.54 X10^3/uL; Monocyte% 8.8 % (0-10); NRBC Flagged by Analyzer 0 % (0-5); Neutrophil % 73.3 % (47-70); Platelet Count 312 K/mm3 (150-450); RBC Distribution Width CV 12.5 % (11.6-14.6); RBC Distribution Width SD 38.5 fl (35.1-43.9); Red Blood Count 4.63 M/mm3 (4.6-6.2); White Blood Count 6.1 K/mm3 (4.4-11.0)
[2020-12-25 12:20] LABS: ALB/GLOB Ratio 1.1 RATIO (0.9-2.4); AST(SGOT) 11 U/L (15-37); Alanine Aminotransfer ALT/SGPT 23 U/L (16-61); Albumin, Serum 3.9 g/dL (3.2-5.0); Alkaline Phosphatase 95 U/L (45-117); Anion Gap 6 (5-15); BUN 11 mg/dL (7-18); BUN/Creat Ratio 11.5 RATIO (10-20); Calcium,Total 8.5 mg/dL (8.5-10.1); Chloride 98 mmol/L (98-107); Creatinine, Serum 0.95 mg/dL (0.70-1.30); EST Glomerular Filtration Rate 83 mL/min (>60); Est Glom Filt Rate - Afr Amer 101 mL/min (>60); Estimated Creatinine Clearance 73.39 ml/min; Globulin 3.6 g/dL (2.2-4.2); Glucose 101 mg/dL (74-106); Potassium 4.1 mmol/L (3.5-5.1); Protein, Total 7.5 g/dL (6.4-8.2); Sodium Level 134 mmol/L (136-145); Thyroid Stim Hormone (TSH) 1.31 uIU/mL (0.358-3.74); Troponin-I HS 4.3 pg/mL (3.0-78.5)
[2020-12-25 12:29] LABS: Alcohol, Blood (Medical)-Serum < 3.0 mg/dL
[2020-12-25 12:46] VITALS: BP 161/79; PULSE 58; RESP 16; O2SAT 97
[2020-12-25 13:18] LABS: Amphetamine Urine VISTA NEGATIVE (<1000 ng/mL); Barbiturate Urine VISTA NEGATIVE (< 200 ng/mL); Benzodiazepine Urine VISTA NEGATIVE (< 200 ng/mL); Cocaine Urine VISTA NEGATIVE (< 300 ng/mL); Ecstacy Urine VISTA NEGATIVE (< 500 ng/mL); Methadone Urine VISTA NEGATIVE (< 300 ng/mL); PCP Urine VISTA NEGATIVE (< 25 ng/mL); THC Urine VISTA NEGATIVE (< 50 ng/mL); Vista UDS pH Range 5
[2020-12-25] MEDS: LORazepam 0.5 MG Tablet PO (13:58)
== END 2020-12-25 14:35 | disposition home or self-care (01) ==
PROVIDERS: Emergency Provider Emergency Medicine; PCP Family Medicine Geriatric Medicine
DX: F13.239 Sedative, hypnotic or anxiolytic dependence with withdrawal, unspecified (principal); F10.139 Alcohol abuse with withdrawal, unspecified; Y90.0 Blood alcohol level of less than 20 mg/100 ml; I10 Essential (primary) hypertension; E87.1 Hypo-osmolality and hyponatremia; Z79.899 Other long term (current) drug therapy; Z87.891 Personal history of nicotine dependence
CPT/HCPCS: 71045; 80053; 80307; 82077; 84443; 84484; 85025; 93005; 96374; 99283

== ENCOUNTER → 2021-02-14 15:55 | Outpatient (CLI) | payer MEDICARE, OTHER, SELFPAY ==
[2021-02-14 18:01] LABS: Anion Gap 3 (5-15); BUN 5 mg/dL (7-18); BUN/Creat Ratio 6.3 RATIO (10-20); Calcium,Total 9.2 mg/dL (8.5-10.1); Chloride 96 mmol/L (98-107); EST Glomerular Filtration Rate 102 mL/min (>60); Est Glom Filt Rate - Afr Amer 124 mL/min (>60); Glucose 95 mg/dL (74-106); Potassium 3.9 mmol/L (3.5-5.1); Sodium Level 131 mmol/L (136-145)
== END ==
PROVIDERS: PCP Family Medicine Geriatric Medicine; Referring Provider Family Medicine Geriatric Medicine; Visit Provider Family Medicine Geriatric Medicine
DX: R53.83 Other fatigue (principal)
CPT/HCPCS: 36415; 80048

== ENCOUNTER → 2021-04-24 11:34 | Outpatient (CLI) | payer MEDICARE, OTHER, SELFPAY ==
[2021-04-24 12:37] LABS: Absolute Lymphocyte Count 1.23 X10^3/uL (0.83-4.51); Absolute Neutrophil Count 4.9 X10^3/uL (2.0-7.7); Basophil# 0.06 X10^3/uL; Basophil% 0.9 % (0-1); Eosinophil# 0.05 X10^3/uL; Eosinophils% 0.7 % (0-5); Hematocrit 43.6 % (40-54); Hemoglobin 15.2 g/dL (13.0-16.5); Lymphocyte # 1.23 X10^3/ul (0.83-4.51); Lymphocyte % 17.7 % (19-41); Mean Corp Hgb Conc 34.9 g/dL (32-36); Mean Corpuscular Hgb 29.5 pg (27.0-32.0); Mean Corpuscular Volume 84.7 fL (80-94); Mean Platelet Vol. 9.1 fl (6.2-12.0); Monocyte# 0.67 X10^3/uL; Monocyte% 9.7 % (0-10); NRBC Flagged by Analyzer 0 % (0-5); Neutrophil # 4.88 X10^3/uL (2.7-7.7); Neutrophil % 70.3 % (47-70); Platelet Count 364 K/mm3 (150-450); RBC Distribution Width SD 40.2 fl (35.1-43.9); Red Blood Count 5.15 M/mm3 (4.6-6.2); White Blood Count 6.9 K/mm3 (4.4-11.0)
[2021-04-24 12:48] LABS: Vitamin D,25 Hydroxy 12.1 ng/mL
[2021-04-24 12:51] LABS: AST(SGOT) 13 U/L (15-37); Alanine Aminotransfer ALT/SGPT 22 U/L (16-61); Alkaline Phosphatase 98 U/L (45-117); Anion Gap 5 (5-15); BUN 9 mg/dL (7-18); BUN/Creat Ratio 9.8 RATIO (10-20); Calcium,Total 9.2 mg/dL (8.5-10.1); Chloride 93 mmol/L (98-107); Creatinine, Serum 0.92 mg/dL (0.70-1.30); EST Glomerular Filtration Rate 87 mL/min (>60); Est Glom Filt Rate - Afr Amer 105 mL/min (>60); Globulin 4.2 g/dL (2.2-4.2); Glucose 107 mg/dL (74-106); Potassium 4.6 mmol/L (3.5-5.1); Protein, Total 8.2 g/dL (6.4-8.2); Sodium Level 129 mmol/L (136-145); Thyroid Stim Hormone (TSH) 1.08 uIU/mL (0.358-3.74)
== END ==
PROVIDERS: PCP Family Medicine Geriatric Medicine; Visit Provider Family Medicine Geriatric Medicine
DX: I10 Essential (primary) hypertension (principal); E23.6 Other disorders of pituitary gland; E55.9 Vitamin D deficiency, unspecified
CPT/HCPCS: 36415; 80053; 82306; 84403; 84443; 85025

== ENCOUNTER → 2021-10-25 | Outpatient (CLI) | payer MEDICARE, SELFPAY ==
[2021-10-25 12:34] LABS: Absolute Lymphocyte Count 1.25 X10^3/uL (0.83-4.51); Absolute Neutrophil Count 4.9 X10^3/uL (2.0-7.7); Basophil# 0.06 X10^3/uL; Basophil% 0.9 % (0-1); Eosinophil# 0.06 X10^3/uL; Eosinophils% 0.9 % (0-5); Hematocrit 47.2 % (40-54); Hemoglobin 15.4 g/dL (13.0-16.5); Lymphocyte # 1.25 X10^3/ul (0.83-4.51); Mean Corp Hgb Conc 32.6 g/dL (32-36); Mean Corpuscular Hgb 28.6 pg (27.0-32.0); Mean Corpuscular Volume 87.7 fL (80-94); Mean Platelet Vol. 9.2 fl (6.2-12.0); Monocyte# 0.62 X10^3/uL; Monocyte% 8.9 % (0-10); NRBC Flagged by Analyzer 0 % (0-5); Neutrophil % 70.6 % (47-70); Platelet Count 376 K/mm3 (150-450); RBC Distribution Width CV 12.7 % (11.6-14.6); RBC Distribution Width SD 40.7 fl (35.1-43.9); Red Blood Count 5.38 M/mm3 (4.6-6.2); White Blood Count 6.9 K/mm3 (4.4-11.0)
[2021-10-25 13:03] LABS: ALB/GLOB Ratio 1.1 RATIO (0.9-2.4); AST(SGOT) 15 U/L (15-37); Alanine Aminotransfer ALT/SGPT 23 U/L (16-61); Alkaline Phosphatase 94 U/L (45-117); Anion Gap 2 (5-15); BUN 10 mg/dL (7-18); BUN/Creat Ratio 8.6 RATIO (10-20); Chloride 98 mmol/L (98-107); Creatinine, Serum 1.16 mg/dL (0.70-1.30); EST Glomerular Filtration Rate 66 mL/min (>60); Est Glom Filt Rate - Afr Amer 80 mL/min (>60); Globulin 3.8 g/dL (2.2-4.2); Glucose 130 mg/dL (74-106); PSA,Total - Annual Screen 0.61 ng/mL (0.00-4.00); Potassium 4.5 mmol/L (3.5-5.1); Protein, Total 7.8 g/dL (6.4-8.2); Sodium Level 133 mmol/L (136-145); Thyroid Stim Hormone (TSH) 1.15 uIU/mL (0.358-3.74)
== END | disposition home or self-care (01) ==
PROVIDERS: PCP Family Medicine Geriatric Medicine; Visit Provider Family Medicine Geriatric Medicine
DX: I10 Essential (primary) hypertension (principal); E23.6 Other disorders of pituitary gland; E55.9 Vitamin D deficiency, unspecified; Z12.5 Encounter for screening for malignant neoplasm of prostate
CPT/HCPCS: 36415; 80053; 82306; 84153; 84403; 84443; 85025; G0103

== ENCOUNTER 2022-01-22 17:16 | Observation (INO) | payer MEDICARE, SELFPAY ==
[2022-01-22] VITALS (12 sets, daily range): BP systolic 148–220; BP diastolic 56–133; PULSE 96–124; RESP 18–22; TEMP 36.6–37.3; O2SAT 95–99; BMI 22.1; BMI 25.4
[2022-01-22 17:34] LABS: Absolute Lymphocyte Count 0.34 X10^3/uL (0.83-4.51); Absolute Neutrophil Count 7.2 X10^3/uL (2.0-7.7); Basophil# 0.02 X10^3/uL; Basophil% 0.2 % (0-1); Eosinophil# 0.01 X10^3/uL; Eosinophils% 0.1 % (0-5); Hematocrit 44.8 % (40-54); Hemoglobin 15.2 g/dL (13.0-16.5); Lymphocyte # 0.34 X10^3/ul (0.83-4.51); Lymphocyte % 4.2 % (19-41); Mean Corp Hgb Conc 33.9 g/dL (32-36); Mean Corpuscular Hgb 27.7 pg (27.0-32.0); Mean Corpuscular Volume 81.8 fL (80-94); Monocyte% 6.1 % (0-10); NRBC Flagged by Analyzer 0 % (0-5); Neutrophil # 7.22 X10^3/uL (2.7-7.7); Neutrophil % 88.5 % (47-70); POSITIVE DIFFERENTIAL YES; Platelet Count 259 K/mm3 (150-450); RBC Distribution Width CV 13.8 % (11.6-14.6); RBC Distribution Width SD 40.7 fl (35.1-43.9); Red Blood Count 5.48 M/mm3 (4.6-6.2); White Blood Count 8.2 K/mm3 (4.4-11.0)
--- NOTE | 2022-01-22 17:48 | RAD_ITS ---
STUDY: X-RAY CHEST REASON FOR EXAM: Male, 71 years old. SOB TECHNIQUE: XR Chest 1 View COMPARISON: 12.25.20 FINDINGS: There is no demonstrated pleural abnormality. Normal size heart. Normal mediastinum and raymond. Normal visualized pulmonary arteries. There is atherosclerotic calcification of the aortic arch with tortuosity. There are diffuse degenerative changes of the visualized thoracic spine. There is degenerative osteoarthritis of the bilateral shoulders. There is no demonstrated abnormality of the visualized soft tissue structures of the upper abdomen. RAD/Chest 1 View (Portable) IMPRESSION: There are no acute findings. Electronically Signed: Victor Hugo Ayoub MD at 18:11 EDT ,
[2022-01-22 17:52] LABS: ALB/GLOB Ratio 0.9 RATIO (0.9-2.4); AST(SGOT) 27 U/L (15-37); Alanine Aminotransfer ALT/SGPT 71 U/L (16-61); Albumin, Serum 3.7 g/dL (3.2-5.0); Alkaline Phosphatase 130 U/L (45-117); Anion Gap 13 (5-15); BUN 11 mg/dL (7-18); BUN/Creat Ratio 11.1 RATIO (10-20); Calcium,Total 8.9 mg/dL (8.5-10.1); Chloride 87 mmol/L (98-107); Creatinine, Serum 0.99 mg/dL (0.70-1.30); EST Glomerular Filtration Rate 80 mL/min (>60); Est Glom Filt Rate - Afr Amer 96 mL/min (>60); Estimated Creatinine Clearance 66.82 ml/min; Glucose 122 mg/dL (74-106); Potassium 3.9 mmol/L (3.5-5.1); Protein, Total 7.7 g/dL (6.4-8.2); Sodium Level 125 mmol/L (136-145)
[2022-01-22 18:15] LABS: Differential Indicated SCAN CRITERIA MET
[2022-01-22 18:16] LABS: Platelet Estimate ADEQUATE (ADEQ); Red Cell Morphology N CHROM NORMAL (NORM C&C)
[2022-01-22 18:17] LABS: Anisocytosis RARE; Microcytosis RARE
--- NOTE | 2022-01-22 18:39 | EKG12_ITS ---
Test Reason : DYSRHYTHMIA Blood Pressure : / mmHG Vent. Rate : 110 BPM Atrial Rate : 110 BPM P-R Int : 140 ms QRS Dur : 096 ms QT Int : 346 ms P-R-T Axes : 076 058 089 degrees QTc Int : 468 ms Sinus tachycardia Otherwise normal ECG Confirmed by RONALD RICHEY, DANICA ([id number]), editorial director RANDY HUFFMAN ([id number]) on 01/24/2022 9:45:05 AM Referred By: TRISH Confirmed By:DANICA CARDENAS MD
--- NOTE | 2022-01-22 18:41 | EDS_ITS ---
HPI History of Present Illness Chief Complaint: Weakness Informant: patient, family and EMS Onset/Context/Timing Onset: Weeks (1) Context: Gradual Onset Timing: Continuous Quality: malaise, weakness Location: all over Current Severity: Severe Maximum Severity: Severe Worsened by: nothing Relieved by: nothing Associated Symptoms Associated Symptoms: fevers Narrative Narrative: Patient states for the past week he has felt malaised and very weak. He has had some subjective fevers. He denies any cough or shortness of breath or any other symptoms on review of systems. Per EMS who came because he had a fall today and was unable to get up due to weakness, he was satting in the 70s. He is not on home oxygen he denies a history of known long or heart disease. 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 His is on hospice. His is very difficult to care for her because she is verbally abusive and it is mentally extremely stressful on the patient and she has been at his limit lately. The son states that they plan on calling hospice to see if they can transition her to an inpatient setting because she has been very difficult to take care of. Patient denies any known sick contacts or contact with COVID that he knows of. He denies any problems urinating but he has been urinating less than usual. He has not eaten in the past 4 days and blames how busy he has been taking care of his , and the emotional stress he has been under as a result of this. [facility] Medical History (Updated 01/23/22 @ 00:[address] Matthew Diop MD) Alcohol abuse Hypertension Vertigo Home Medications citalopram 40 mg tablet 40 mg PO DAILY 01/22/22 [History Last Taken Unknown] lisinopril 40 mg tablet 40 mg PO DAILY 01/22/22 [History Last Taken Unknown] metoprolol tartrate 50 mg tablet 50 mg PO BID 01/22/22 [History Last Taken Unknown] minoxidil 10 mg tablet 10 mg PO DAILY 01/22/22 [History Last Taken Unknown] omeprazole 40 mg capsule,delayed release 40 mg PO DAILY 01/22/22 [History Last Taken Unknown] Allergy/AdvReac Type Severity Reaction Status Date / Time No Known Allergies Allergy Verified 01/22/22 17:23 Family History (Updated 01/22/22 @ 23:[address] Uriel Cotton MD) Other Dementia Heart disease Surgical History (Updated 01/22/22 @ 23:[address] Uriel Cotton MD) H/O tooth extraction Social History Smoking Status: Former smoker ROS ROS ED Constitutional Constitutional ED: Reports anorexia, chills, fatigue, fever(s), malaise, subjective and weakness Eyes Eyes: Denies change in vision or diplopia ENT ENT ED: Denies rhinorrhea or sore throat Cardiovascular Cardiovascular: Denies chest pain or palpitations Respiratory/Chest Respiratory/Chest: Denies cough or dyspnea Gastrointestinal Gastrointestinal: Denies abdominal pain, diarrhea, nausea or vomiting Genitourinary Genitourinary ED: Denies dysuria or hematuria Musculoskeletal Musculoskeletal: Denies back pain or neck pain Integumentary Denies abscess or rash Neurologic Neurologic: Denies headache(s), paresthesias or weakness Psychiatric Psychiatric: Denies anxiety or suicidal thoughts EXAM Physical Exam Const Vital Signs: 01/22/22 17:17 01/22/22 17:37 01/22/22 17:40 Temperature 98.2 F Temperature Source Temporal Pulse Rate 124 H 111 H Respiratory Rate 20 H 22 H Respiratory Pattern Normal Blood Pressure 220/106 H 168/133 H Blood Pressure Mean 144 144 Pulse Ox 95 98 Oxygen Delivery Method Nasal Cannula Nasal Cannula Oxygen Flow Rate (L/min) 6 5 01/22/22 18:13 01/22/22 18:13 01/22/22 19:11 Temperature 98.2 F Temperature Source Temporal Pulse Rate 108 H 108 H Respiratory Rate 18 18 Respiratory Pattern Blood Pressure 173/83 H 173/83 H Blood Pressure Mean 113 113 Pulse Ox 98 98 98 Oxygen Delivery Method Nasal Cannula Nasal Cannula Nasal Cannula Oxygen Flow Rate (L/min) 5 5 5 01/22/22 19:22 01/22/22 20:00 01/22/22 21:00 Temperature 98.2 F Temperature Source Temporal Pulse Rate 106 H 99 96 Respiratory Rate 22 H 18 19 H Respiratory Pattern Blood Pressure 182/78 H 158/100 H 168/94 H Blood Pressure Mean 112 119 118 Pulse Ox 97 96 95 Oxygen Delivery Method Nasal Cannula Nasal Cannula Nasal Cannula Oxygen Flow Rate (L/min) 6 6 01/22/22 21:13 01/22/22 22:00 Temperature Temperature Source Pulse Rate 99 Respiratory Rate 20 H Respiratory Pattern Blood Pressure 148/63 H 149/70 H Blood Pressure Mean 91 96 Pulse Ox 99 Oxygen Delivery Method Nasal Cannula Oxygen Flow Rate (L/min) 4 Positive well nourished and well developed General Appearance ED: well developed and NAD HEENT Reports moist mucous membranes normocephalic and atraumatic Eyes PERRL and EOMs intact bilaterally Neck full ROM and supple Resp normal respiratory effort and clear to auscultation bilaterally Cardio regular rate, regular rhythm and no murmurs Rate: tachycardic GI non-tender and non-distended Auscultation: normoactive bowel sounds Palpation: soft Back/Spine no CVA tenderness General Back: other FROM Extremity normal to inspection General Extremety ED: Negative for edema, pulses abnormal or tenderness General Extremity: Negative for edema or pulses abnormal Neuro oriented x3, CN's II-XII intact bilaterally and no sensory deficits noted Neuro Narrative: 4/5 strength throughout, moves all 4 extremities equally. Sensorium / Orientation: awake and alert Psych mental status grossly normal Skin no rashes or lesions noted and no wounds MDM MDM MDM Narrative Medical decision making narrative: Patient was very hypoxic upon arrival, but doing well on a nasal cannula, currently 99% on 4 L. His chest x-ray is normal, which led me to order a D- dimer which was elevated. Therefore I perform CT angiography of the chest, it shows no acute pathology no pulmonary embolus. It is unknown if the patient has undiagnosed COPD, pulmonary hypertension, or other pulmonary pathology. His blood pressure was very elevated, 220/106 and remained similarly elevated with observation until I gave him hydralazine, this brought it down to 149/70. The rest of his work-up is significant for hyponatremia with concomitant low chloride. His BNP is within normal limits, his EKG is unremarkable except for sinus tachycardia. I expect that the hyponatremia is responsible for the majority of his generalized weakness, his COVID and influenza are negative, and urine shows no acute infection. Plan is for admission. Started on slow IV fluids. We did discontinue his oxygen, and he maintaining excellent saturations 98-100% on room air so it was left off. He did ask for something for pain later, he developed pain in his right upper-lateral rib cage that he did not have upon initial evaluation, he states he feels like he injured it from his fall just prior to arrival, I gave him something for pain, I examined him there is no crepitance, step-off, flail. He had a CT of the chest that showing no fractures I reassured him. He has no other areas that are painful at this time. Lab Data Attestation: I reviewed the patient's lab results. Labs: Laboratory Results - last 24 hr 01/22/22 01/22/22 01/22/22 17:24 17:24 17:24 WBC 8.2 RBC 5.48 Hgb 15.2 Hct 44.8 MCV 81.8 MCH 27.7 MCHC 33.9 RDW Std Deviation 40.7 RDW Coeff of Milly 13.8 Plt Count 259 MPV 9.0 Immature Gran % (Auto) 0.900 Neut % (Auto) 88.5 H Lymph % (Auto) 4.2 L [place] % (Auto) 6.1 Eos % (Auto) 0.1 Baso % (Auto) 0.2 Absolute Neuts (auto) 7.2 Absolute Lymphs (auto) 0.34 L Nucleated RBC % 0 Differential Comment SEE COMMENT Platelet Estimate ADEQUATE RBC Morphology N CHROM Anisocytosis RARE Microcytosis RARE D-Dimer Quant (PE/DVT) Sodium 125 L Potassium 3.9 Chloride 87 L Carbon Dioxide 25.0 Anion Gap 13 BUN 11 Creatinine 0.99 Estim Creat Clear Calc 66.82 Est GFR (MDRD) Af Amer 96 Est GFR (MDRD) Non-Af 80 BUN/Creatinine Ratio 11.1 Glucose 122 H Serum Osmolality Lactic Acid Calcium 8.9 Total Bilirubin 1.10 H AST 27 ALT 71 H Alkaline Phosphatase 130 H Troponin I High Sens 8 B-Natriuretic Peptide Total Protein 7.7 Albumin 3.7 Globulin 4.0 Albumin/Globulin Ratio 0.9 Urine Color Urine Clarity Urine pH Ur Specific [place] Urine Protein Urine Glucose (UA) Urine Ketones Urine Occult Blood Urine Nitrite Urine Bilirubin Urine Urobilinogen Ur Leukocyte Esterase Urine RBC Urine WBC Ur Squamous Epith Cells Urine Bacteria Urine Mucus Urine Osmolality Ur Random Sodium Urine Opiates Screen Urine Methadone Screen Ur Barbiturates Screen Ur Phencyclidine Scrn Ur Amphetamines Screen MDMA (Ecstasy) Screen U Benzodiazepines Scrn Urine Cocaine Screen U Cannabinoids Screen Ur Drug Screen Comment Ethyl Alcohol 01/22/22 01/22/22 01/22/22 17:24 18:40 18:44 WBC RBC Hgb Hct MCV MCH MCHC RDW Std Deviation RDW Coeff of Milly Plt Count MPV Immature Gran % (Auto) Neut % (Auto) Lymph % (Auto) [place] % (Auto) Eos % (Auto) Baso % (Auto) Absolute Neuts (auto) Absolute Lymphs (auto) Nucleated RBC % Differential Comment Platelet Estimate RBC Morphology Anisocytosis Microcytosis D-Dimer Quant (PE/DVT) Sodium Potassium Chloride Carbon Dioxide Anion Gap BUN Creatinine Estim Creat Clear Calc Est GFR (MDRD) Af Amer Est GFR (MDRD) Non-Af BUN/Creatinine Ratio Glucose Serum Osmolality Lactic Acid 0.9 Calcium Total Bilirubin AST ALT Alkaline Phosphatase Troponin I High Sens B-Natriuretic Peptide 66.9 Total Protein Albumin Globulin Albumin/Globulin Ratio Urine Color Urine Clarity Urine pH Ur Specific [place] Urine Protein Urine Glucose (UA) Urine Ketones Urine Occult Blood Urine Nitrite Urine Bilirubin Urine Urobilinogen Ur Leukocyte Esterase Urine RBC Urine WBC Ur Squamous Epith Cells Urine Bacteria Urine Mucus Urine Osmolality Ur Random Sodium Urine Opiates Screen Urine Methadone Screen Ur Barbiturates Screen Ur Phencyclidine Scrn Ur Amphetamines Screen MDMA (Ecstasy) Screen U Benzodiazepines Scrn Urine Cocaine Screen U Cannabinoids Screen Ur Drug Screen Comment Ethyl Alcohol 4.0 01/22/22 01/22/22 01/22/22 18:44 19:00 20:00 WBC RBC Hgb Hct MCV MCH MCHC RDW Std Deviation RDW Coeff of Milly Plt Count MPV Immature Gran % (Auto) Neut % (Auto) Lymph % (Auto) [place] % (Auto) Eos % (Auto) Baso % (Auto) Absolute Neuts (auto) Absolute Lymphs (auto) Nucleated RBC % Differential Comment Platelet Estimate RBC Morphology Anisocytosis Microcytosis D-Dimer Quant (PE/DVT) Sodium Potassium Chloride Carbon Dioxide Anion Gap BUN Creatinine Estim Creat Clear Calc Est GFR (MDRD) Af Amer Est GFR (MDRD) Non-Af BUN/Creatinine Ratio Glucose Serum Osmolality 254 L Lactic Acid Calcium Total Bilirubin AST ALT Alkaline Phosphatase Troponin I High Sens B-Natriuretic Peptide Total Protein Albumin Globulin Albumin/Globulin Ratio Urine Color Yellow Urine Clarity Clear Urine pH 6.5 Ur Specific [place] 1.015 Urine Protein 100 H Urine Glucose (UA) Normal Urine Ketones 150 A* Urine Occult Blood 25 H Urine Nitrite Negative Urine Bilirubin Negative Urine Urobilinogen 8 H Ur Leukocyte Esterase Negative Urine RBC 0-5 SEEN Urine WBC 0 SEEN Ur Squamous Epith Cells 0-5 SEEN Urine Bacteria 1+ Urine Mucus 0 SEEN Urine Osmolality Ur Random Sodium Urine Opiates Screen NEGATIVE Urine Methadone Screen NEGATIVE Ur Barbiturates Screen NEGATIVE Ur Phencyclidine Scrn NEGATIVE Ur Amphetamines Screen NEGATIVE MDMA (Ecstasy) Screen POSITIVE H U Benzodiazepines Scrn NEGATIVE Urine Cocaine Screen NEGATIVE U Cannabinoids Screen NEGATIVE Ur Drug Screen Comment Ethyl Alcohol 01/22/22 01/22/22 20:00 20:45 WBC RBC Hgb Hct MCV MCH MCHC RDW Std Deviation RDW Coeff of Milly Plt Count MPV Immature Gran % (Auto) Neut % (Auto) Lymph % (Auto) [place] % (Auto) Eos % (Auto) Baso % (Auto) Absolute Neuts (auto) Absolute Lymphs (auto) Nucleated RBC % Differential Comment Platelet Estimate RBC Morphology Anisocytosis Microcytosis D-Dimer Quant (PE/DVT) 1.44 H* Sodium Potassium Chloride Carbon Dioxide Anion Gap BUN Creatinine Estim Creat Clear Calc Est GFR (MDRD) Af Amer Est GFR (MDRD) Non-Af BUN/Creatinine Ratio Glucose Serum Osmolality Lactic Acid Calcium Total Bilirubin AST ALT Alkaline Phosphatase Troponin I High Sens B-Natriuretic Peptide Total Protein Albumin Globulin Albumin/Globulin Ratio Urine Color Urine Clarity Urine pH Ur Specific [place] Urine Protein Urine Glucose (UA) Urine Ketones Urine Occult Blood Urine Nitrite Urine Bilirubin Urine Urobilinogen Ur Leukocyte Esterase Urine RBC Urine WBC Ur Squamous Epith Cells Urine Bacteria Urine Mucus Urine Osmolality 617 Ur Random Sodium 96 Urine Opiates Screen Urine Methadone Screen Ur Barbiturates Screen Ur Phencyclidine Scrn Ur Amphetamines Screen MDMA (Ecstasy) Screen U Benzodiazepines Scrn Urine Cocaine Screen U Cannabinoids Screen Ur Drug Screen Comment Ethyl Alcohol Radiography Chest X-Ray - ED: 1 View, Read by ED Physician, No Acute Disease and No Infiltrates Diagnostic Testing: Clinical Impression(s) from Imaging Studies Chest X-Ray 01/22/22 17:48 IMPRESSION: There are no acute findings. Electronically Signed: Victor Hugo Ayoub MD at 18:11 EDT Reading Location ID and State: [facility] / [place] , Service support , Chest CTA 01/22/22 21:18 IMPRESSION: Normal CTA chest examination, without a demonstrated pulmonary embolism or arterial dissection. No acute cardiopulmonary disease Electronically Signed: Amrit Webber DO at 22:06 EDT , Rhythm Strip Rhythm Strip: Sinus Tach Rate: 110 Ectopy: None EKG Initial EKG: Attestation: I personally reviewed and interpreted this EKG as follows: Interpretation: No Acute Injury Pattern and Sinus Tachycardia Discharge Plan Dx/Rx/DC Orders Clinical Impression: Hyponatremia, Declining functional status, Accelerated hypertension, Contusion of right chest wall, Accidental fall Disposition Disposition: Acute Care Hospital [facility] Discharge Date/Time: 01/22/22 23:34
[2022-01-22 19:18] LABS: Mucous, Urine 0 SEEN /hpf (<or=2+); White Blood Cells 0 SEEN /hpf (0-5)
[2022-01-22 19:29] LABS: Color, Urine Yellow (Yellow); Glucose, Dipstick Normal (Normal); Leukocyte Esterase-Dipstick Negative /ul (Negative); Nitrite-Dipstick Negative (Negative); Occult Blood-Urine 25 /ul (Negative); Protein-Dipstick 100 mg/dl (Negative); Specific Gravity, Urine 1.015 (1.002-1.030); Urine Bilirubin Dipstick Negative (Negative); Urine Clarity Clear (Clear); Urine Urobilinogen 8 mg/dl (Normal); Urine pH 6.5 (5.0 - 8.0)
[2022-01-22 19:39] LABS: Ketone-Dipstick 150 mg/dl (Negative)
[2022-01-22 19:42] LABS: Bacteria 1+ /hpf (None Seen); Red Blood Cells-Urine 0-5 SEEN /hpf (0-5); Squamous Epithelial Cells - UA 0-5 SEEN /hpf (0-5)
[2022-01-22 20:11] LABS: Lactic Acid 0.9 mmol/L (0.4-1.9)
[2022-01-22 20:22] LABS: BNP,B-Type NATRIURETIC PEPTIDE 66.9 pg/mL (0-100)
[2022-01-22 20:34] LABS: Amphetamine Urine VISTA NEGATIVE (<1000 ng/mL); Barbiturate Urine VISTA NEGATIVE (< 200 ng/mL); Benzodiazepine Urine VISTA NEGATIVE (< 200 ng/mL); Cocaine Urine VISTA NEGATIVE (< 300 ng/mL); Ecstacy Urine VISTA POSITIVE (< 500 ng/mL); Methadone Urine VISTA NEGATIVE (< 300 ng/mL); PCP Urine VISTA NEGATIVE (< 25 ng/mL); THC Urine VISTA NEGATIVE (< 50 ng/mL); Vista UDS pH Range 6
[2022-01-22] MEDS: 0.9% Normal Saline 1,000 ML 120 ML IV (20:50)
[2022-01-22] MEDS: hydrALAZINE 20 MG/ML Vial 10 MG IV (20:50)
[2022-01-22 21:10] LABS: D-Dimer Quantitative (DVT/PE) 1.44 FEU/ug/m (0.27-0.49)
--- NOTE | 2022-01-22 21:18 | CT_ITS ---
STUDY: CTA CHEST REASON FOR EXAM: Male, 71 years old. hypoxemia, abn d-dimer, nml CXR RADIATION DOSAGE (If Supplied By Facility): CTDIvol = ( 12.22 ) mGy, DLP = ( 463.03 ) mGycm TECHNIQUE: The examination was performed with the intravenous administration of IV 100mL Isovue-370. Post-processing of the angiographic images was performed, with multiplanar reformation and 3D reconstruction. Individualized dose optimization techniques were used for this CT. COMPARISON: 06/27/2013 FINDINGS: Normal enhancement of the main pulmonary artery and right and left pulmonary arteries. Normal enhancement of the bilateral peripheral pulmonary arteries. There is no demonstrated pulmonary embolism. Normal thoracic aorta and visualized great vessels. There is no demonstrated aortic dissection. Normal heart and pericardium. Normal mediastinum. Normal hilar regions. Normal visualized trachea and bronchi. The lungs are hyper expanded, with flattening of the hemidiaphragms. Normal pulmonary parenchyma. Normal pleura. There are no pleural effusions. Normal chest wall structures. There are degenerative changes of thoracic spine. Again noted is nonenhancing right upper pole renal cyst, now measuring 3.[address]/CTA Chest W/WO Contrast IMPRESSION: Normal CTA chest examination, without a demonstrated pulmonary embolism or arterial dissection. No acute cardiopulmonary disease Electronically Signed: Amrit Webber DO at 22:06 EDT ,
--- NOTE | 2022-01-22 22:52 | HP.PCM.HOS_ITS ---
HPI - General General Date of Admission: 01/22/22 Date of Service: 01/22/22 Chief Complaint: WEAKNESS HPI Narrative CARMENCITA GARY, is a 71 M with a significant history of hypertension; and alcohol abuse who presents to the emergency department with progressively worsening weakness that has been going on for at least a week. On day of presentation patient fell. Patient reports right rib pain from falling. Patient reports that a day before presentation he passed out. Further, patient reports Vertigo. He reports poor appetite. Patient is stressed taking care of his who is hospice. [facility] Medical History (Updated 01/22/22 @ 23:[address] Uriel Cotton MD) Alcohol abuse Hypertension Vertigo Home Medications citalopram 40 mg tablet 40 mg PO DAILY 01/22/22 [History Last Taken Unknown] lisinopril 40 mg tablet 40 mg PO DAILY 01/22/22 [History Last Taken Unknown] metoprolol tartrate 50 mg tablet 50 mg PO BID 01/22/22 [History Last Taken Unknown] minoxidil 10 mg tablet 10 mg PO DAILY 01/22/22 [History Last Taken Unknown] omeprazole 40 mg capsule,delayed release 40 mg PO DAILY 01/22/22 [History Last Taken Unknown] Allergy/AdvReac Type Severity Reaction Status Date / Time No Known Allergies Allergy Verified 01/22/22 17:23 Family History (Updated 01/22/22 @ 23:[address] Uriel Cotton MD) Other Dementia Heart disease Surgical History (Updated 01/22/22 @ 23:[address] Uriel Cotton MD) H/O tooth extraction Social History Smoking Status: Former smoker ROS ROS Narrative Pertinent positives and pertinent negatives as noted in HPI. All other systems were reviewed and are negative. Vital Signs Vital Signs Vital Signs: 01/22/22 17:17 01/22/22 17:37 01/22/22 17:40 Temperature 98.2 F Temperature Source Temporal Pulse Rate 124 H 111 H Respiratory Rate 20 H 22 H Respiratory Pattern Normal Blood Pressure 220/106 H 168/133 H Blood Pressure Mean 144 144 Pulse Ox 95 98 Oxygen Delivery Method Nasal Cannula Nasal Cannula Oxygen Flow Rate (L/min) 6 5 01/22/22 18:13 01/22/22 18:13 01/22/22 19:11 Temperature 98.2 F Temperature Source Temporal Pulse Rate 108 H 108 H Respiratory Rate 18 18 Respiratory Pattern Blood Pressure 173/83 H 173/83 H Blood Pressure Mean 113 113 Pulse Ox 98 98 98 Oxygen Delivery Method Nasal Cannula Nasal Cannula Nasal Cannula Oxygen Flow Rate (L/min) 5 5 5 01/22/22 19:22 01/22/22 20:00 01/22/22 21:00 Temperature 98.2 F Temperature Source Temporal Pulse Rate 106 H 99 96 Respiratory Rate 22 H 18 19 H Respiratory Pattern Blood Pressure 182/78 H 158/100 H 168/94 H Blood Pressure Mean 112 119 118 Pulse Ox 97 96 95 Oxygen Delivery Method Nasal Cannula Nasal Cannula Nasal Cannula Oxygen Flow Rate (L/min) 6 6 01/22/22 21:13 01/22/22 22:00 Temperature Temperature Source Pulse Rate 99 Respiratory Rate 20 H Respiratory Pattern Blood Pressure 148/63 H 149/70 H Blood Pressure Mean 91 96 Pulse Ox 99 Oxygen Delivery Method Nasal Cannula Oxygen Flow Rate (L/min) 4 Weight Weight: 68.039 kg Body Mass Index (BMI) 22.1 Physical Exam Narrative Physical exam: General: Well-nourished, well-developed. Head: Normocephalic, atraumatic, no tenderness Eyes: Vision is grossly intact. EOMI ENT, no trauma, moist mucous membranes, no rhinorrhea Neck: Nontender, full range of motion, no spinal tenderness, deformities, step- off CVS: Regular rate and rhythm. S1-S2 present. No murmur, gallop or rub. Respiratory : clear to auscultation bilaterally, chest wall nontender, no wheezing Abdomen: Soft, nontender, nondistended, normal bowel sounds, no masses : Deferred Back: Nontender, no CVA tenderness, no midline spinal tenderness, deformities, step-offs Extremities: Nontender full range of motion, no trauma Skin: Normal color, no trauma. Excoriation between big toe and second toe on the left foot Neuro: Alert, oriented, cranial nerves II through XII grossly intact. Unable to sit at the side of the bed for [place] Hallpike maneuver. Psychiatry: Normal mood. Normal affect. Not depressed. Not anxious. Results Medical Records Data Attestation: I reviewed the patient's medical records Lab / Micro Data Attestation: I reviewed the patient's lab results. Result Diagrams: 01/22/22 17:24 01/22/22 17:24 Labs: Laboratory Results - last 24 hr 01/22/22 17:24: WBC 8.2, RBC 5.48, Hgb 15.2, Hct 44.8, MCV 81.8, MCH 27.7, MCHC 33.9, RDW Std Deviation 40.7, RDW Coeff of Milly 13.8, Plt Count 259, MPV 9.0, Immature Gran % (Auto) 0.900, Neut % (Auto) 88.5 H, Lymph % (Auto) 4.2 L, [place] % (Auto) 6.1, Eos % (Auto) 0.1, Baso % (Auto) 0.2, Absolute Neuts (auto) 7.2, Absolute Lymphs (auto) 0.34 L, Nucleated RBC % 0, Differential Comment SEE COMMENT, Platelet Estimate ADEQUATE, RBC Morphology N CHROM, Anisocytosis RARE, Microcytosis RARE 01/22/22 17:24: Sodium 125 L, Potassium 3.9, Chloride 87 L, Carbon Dioxide 25.0, Anion Gap 13, BUN 11, Creatinine 0.99, Estim Creat Clear Calc 66.82, Est GFR (MDRD) Af Amer 96, Est GFR (MDRD) Non-Af 80, BUN/Creatinine Ratio 11.1, Glucose 122 H, Calcium 8.9, Total Bilirubin 1.10 H, AST 27, ALT 71 H, Alkaline Phosphatase 130 H, Total Protein 7.7, Albumin 3.7, Globulin 4.0, Albumin/Globulin Ratio 0.9 01/22/22 17:24: B-Natriuretic Peptide 66.9 01/22/22 18:40: Lactic Acid 0.9 01/22/22 18:44: Ethyl Alcohol 4.0 01/22/22 19:00: Urine Color Yellow, Urine Clarity Clear, Urine pH 6.5, Ur Specific [place] 1.015, Urine Protein 100 H, Urine Glucose (UA) Normal, Urine Ketones 150 A*, Urine Occult Blood 25 H, Urine Nitrite Negative, Urine Bilirubin Negative, Urine Urobilinogen 8 H, Ur Leukocyte Esterase Negative, Urine RBC 0-5 SEEN, Urine WBC 0 SEEN, Ur Squamous Epith Cells 0-5 SEEN, Urine Bacteria 1+, Urine Mucus 0 SEEN 01/22/22 20:00: Urine Opiates Screen NEGATIVE, Urine Methadone Screen NEGATIVE, Ur Barbiturates Screen NEGATIVE, Ur Phencyclidine Scrn NEGATIVE, Ur Amphetamines Screen NEGATIVE, MDMA (Ecstasy) Screen POSITIVE H, U Benzodiazepines Scrn NEGATIVE, Urine Cocaine Screen NEGATIVE, U Cannabinoids Screen NEGATIVE, Ur Drug Screen Comment 01/22/22 20:45: D-Dimer Quant (PE/DVT) 1.44 H* Micro: Microbiology 01/22/22 18:45 Nasal Secretion SARS-CoV-2 & FLU Antigen (Rapid) - Final Rhythm Strip Rhythm Strip: Sinus Tach Rate: 110 Ectopy: None Radiology Impression Chest X-Ray 01/22/22 17:48 IMPRESSION: There are no acute findings. Electronically Signed: Victor Hugo Ayoub MD at 18:11 EDT , Chest CTA 01/22/22 21:18 IMPRESSION: Normal CTA chest examination, without a demonstrated pulmonary embolism or arterial dissection. No acute cardiopulmonary disease Electronically Signed: Amrit Webber DO at 22:06 EDT , Assessment & Plan Assessment/Plan (1) Weakness: (2) Hyponatremia: (3) Hypoxemia: (4) Hypertensive urgency: (5) Syncope: (6) Fall: PLAN: Plan Generalized weakness Likely secondary to hyponatremia. PT and OT to work with patient. Treatment o f hyponatremia. Acute on chronic hyponatremia Sodium of 125 on presentation. Chloride is 87. Review of old records shows chronic hyponatremia. Likely secondary to beer potomania Check uric acid Check urine osmolarity Check urine sodium Check serum osmolality. Check TSH and a.m. cortisol. Gentle IV hydration. Trend BMP. Hypoxemia Reported oxygen saturation was in the 70s when EMS found him. Weaned off oxygen the emergency department. D-dimer of 1.44 on presentation Chest CTA was independently visualized. I agree with radiologist interpretation of no acute cardiopulmonary process. Monitor pulse ox. Hypertensive urgency Systolic blood pressure of more than 180 on presentation. Home blood pressure medication continued. PRN Hydralazine IV ordered. Trend blood pressures. Syncope Orthostatic vitals ordered. Check echocardiogram. Fall PT and OT work with patient for strengthening training. Vitamin B12 and vitamin D ordered Alcoholism. Patient reports drinking 2-3 beers now. Reportedly previously he drank about 12 packs. Cannot rule out minimization. Folic acid and thiamine ordered. Check CIWA scores. DVT prophylaxis subcutaneous Lovenox ordered. Charges/Coding Visit Charges OBSV E&M: 26928 Initial observation care L3
[2022-01-22 23:03] LABS: Troponin-I HS 8 pg/mL (3.0-78.0)
[2022-01-22] MEDS: Morphine 2 MG/ML Syringe IV (23:03)
[2022-01-22 23:13] LABS: Urine Sodium 96 mmol/L (Not Establ.)
[2022-01-22 23:34] LABS: Osmolality, Urine 617 mOsm/KG
[2022-01-22 23:34] LABS: Osmolality, Serum 254 mOsm/KG (280-301)
--- NOTE | 2022-01-22 23:36 | ECHOD_ITS ---
Reason For Study: Syncope Procedure This was a 2D Doppler, Color Flow transthoracic echocardiogram. The study was technically difficult. Exam performed portable in patient room. Left Ventricle Normal LV size. Left ventricular systolic function is normal. The estimated ejection fraction is 70 %. Diastolic function is indeterminate. No regional wall motion abnormalities noted. Right Ventricle Normal RV size. Normal systolic function. Atria The left atrium is mildly enlarged. Normal right atrium. No doppler evidence for ASD. Bubble contrast study negative for right to left interatrial shunt. Mitral Valve There is mild to moderate mitral annular calcification. Tension of the mitral annular calcification onto the base of the posterior mitral valve leaflet. Mild (1+) eccentric mitral valve insufficiency. Tricuspid Valve Normal tricuspid valve. Trivial tricuspid valve insufficiency. Aortic Valve Trisinus/trileaflet aortic valve. Mild focal aortic valve calcification. Pulmonic Valve The pulmonic valve is not well visualized. Great Vessels The aortic root is not well visualized. Pericardium/Pleural No pericardial effusion. Medication Performed a rapid injection of agitated mix of 9 cc saline and 1cc air to assess for atrial septal defect. MMode/2D Measurements & Calculations LVIDd: 4.7 cm IVSd: 1.2 cm LA dimension: 4.1 cm LVIDs: 3.0 cm LVPWd: 1.2 cm RVDd: 3.9 cm FS: 36.6 % LAV(MOD-bp): 67.9 ml LA A4 area: 22.4 cm2 RA A4 area: 12.4 cm2 LAV(MOD-bp) Indexed: 35.0 ml/m2 LAV(MOD-sp2): 53.4 ml LAV(MOD-sp4): 72.7 ml Time Measurements MV dec time: 0.27 sec Doppler Measurements & Calculations MV E max esme: 69.8 cm/sec MV V2 max: 101.5 cm/sec MV P1/2t max esme: 84.2 cm/sec MV A max esme: 93.8 cm/sec MV max P.1 mmHg MV P1/2t: 94.0 msec MV E/A: 0.74 MV V2 mean: 60.4 cm/sec MV dec slope: 262.2 cm/sec2 MV mean P.7 mmHg MV V2 VTI: 30.5 cm MVA(P1/2t): 2.3 cm2 Ao V2 max: 108.7 cm/sec LV V1 max: 113.0 cm/sec PA V2 max: 90.7 cm/sec Ao max P.7 mmHg LV V1 max P.1 mmHg Ao V2 mean: 80.2 cm/sec LV V1 mean P.8 mmHg Ao mean P.9 mmHg LV V1 mean: 77.7 cm/sec Ao V2 VTI: 28.2 cm LV V1 VTI: 26.9 cm ECHO/Echo Complete Interpretation Summary The study was technically difficult. Left ventricular systolic function is normal. The estimated ejection fraction is 70 %. The left atrium is mildly enlarged. There is mild to moderate mitral annular calcification. Tension of the mitral annular calcification onto the base of the posterior mitr al valve leaflet. Mild (1+) eccentric mitral valve insufficiency. Trivial tricuspid valve insufficiency. Mild focal aortic valve calcification. Diastolic function is indeterminate. Ordering Physician: Uriel Cotton Referring Physician: Gamaliel Wade Chi Performed By: Loc Reilly RCS
[2022-01-23] VITALS (15 sets, daily range): BP systolic 134–166; BP diastolic 65–90; PULSE 72–104; RESP 16–25; TEMP 36.9–37.3; O2SAT 93–100
[2022-01-23 00:04] LABS: Uric Acid 5.5 mg/dL (3.5-7.2)
[2022-01-23] MEDS: oxyCODONE 5 MG Tablet PO ×4 (00:22→14:48)
[2022-01-23] MEDS: 0.9% Normal Saline 1,000 ML 100 ML IV ×2 (00:27→10:12)
[2022-01-23 05:46] LABS: Absolute Lymphocyte Count 0.55 X10^3/uL (0.83-4.51); Absolute Neutrophil Count 7.2 X10^3/uL (2.0-7.7); Basophil# 0.03 X10^3/uL; Basophil% 0.3 % (0-1); Hematocrit 41.6 % (40-54); Hemoglobin 14.1 g/dL (13.0-16.5); Lymphocyte # 0.55 X10^3/ul (0.83-4.51); Lymphocyte % 6.3 % (19-41); Mean Corp Hgb Conc 33.9 g/dL (32-36); Mean Corpuscular Volume 82.7 fL (80-94); Mean Platelet Vol. 8.9 fl (6.2-12.0); Monocyte# 0.99 X10^3/uL; Monocyte% 11.3 % (0-10); NRBC Flagged by Analyzer 0 % (0-5); Neutrophil # 7.15 X10^3/uL (2.7-7.7); Neutrophil % 81.5 % (47-70); POSITIVE DIFFERENTIAL YES; Platelet Count 266 K/mm3 (150-450); RBC Distribution Width CV 14.1 % (11.6-14.6); RBC Distribution Width SD 42.3 fl (35.1-43.9); Red Blood Count 5.03 M/mm3 (4.6-6.2); White Blood Count 8.8 K/mm3 (4.4-11.0)
[2022-01-23 05:52] LABS: Differential Indicated SCAN CRITERIA MET
--- NOTE | 2022-01-23 05:55 | MRI_ITS ---
STUDY: MRI BRAIN WITHOUT CONTRAST REASON FOR EXAM: Male, 71 years old. VERTIGO TECHNIQUE: Standardized multiplanar fat and water weighted pulse sequences were obtained. COMPARISON: None. FINDINGS: There is moderate cerebral atrophy with widening of the extra-axial spaces and ventricular dilatation. There are a limited number of small white matter hyperintensities, distributed throughout the deep white matter tracts of the cerebral hemispheres, consistent with mild chronic white matter ischemic changes. There is no evidence for recent intracranial ischemia or other cause of cytotoxic edema on diffusion weighted imaging (DWI). Normal T2* images of the brain without demonstrated susceptibility artifact. There is no demonstrated hemosiderin stain. Normal bilateral basal ganglia. Normal thalami. There is no extra-axial fluid accumulation. Normal flow voids within the major intracranial circulation suggesting patency by spin echo criteria. Normal sella turcica, pituitary gland, infundibular stalk, optic chiasm and hypothalamus. Normal tectal plate and pineal gland. Normal midbrain, merced and medulla. Normal cerebellum. Normal basal cisterns. Normal bilateral temporal bones. Normal bilateral internal auditory canals. No demonstrated orbital abnormality, within the constraints of a routine brain study. A moderate size mucus retention cyst is present in the right frontal sinus. There is moderate to significant opacification of the right mastoid air cells. Normal calvarium and skull base. Normal visualized soft tissue structures. Normal visualized upper cervical spine. MRI/Brain without Contrast IMPRESSION: 1. Involutional changes of the brain, as described above. 2. No acute infarct or intracranial hemorrhage 3. A moderate size mucus retention cyst is present in the right frontal sinus. There is moderate to significant opacification of the right mastoid air cells. Electronically Signed: Leland Philippe MD at 15:11 EDT ,
[2022-01-23 06:17] LABS: Differential Comment SCANNED
[2022-01-23 06:21] LABS: Anion Gap 10 (5-15); BUN 8 mg/dL (7-18); BUN/Creat Ratio 10.1 RATIO (10-20); Calcium,Total 8.3 mg/dL (8.5-10.1); Chloride 92 mmol/L (98-107); Creatinine, Serum 0.79 mg/dL (0.70-1.30); EST Glomerular Filtration Rate 102 mL/min (>60); Est Glom Filt Rate - Afr Amer 124 mL/min (>60); Estimated Creatinine Clearance 68.74 ml/min; Glucose 95 mg/dL (74-106); Potassium 3.5 mmol/L (3.5-5.1); Sodium Level 127 mmol/L (136-145); Thyroid Stim Hormone (TSH) 0.79 uIU/mL (0.358-3.74)
[2022-01-23] MEDS: Acetaminophen 325 MG Tablet 650 MG PO ×2 (06:23→14:48)
[2022-01-23 07:57] LABS: Vitamin B12 227 pg/mL (211-911); Vitamin D,25 Hydroxy 21.8 ng/mL
[2022-01-23] MEDS: Citalopram 40 MG TABLET PO (08:18)
[2022-01-23] MEDS: Pantoprazole Sodium 40 MG Tablet PO (08:18)
[2022-01-23] MEDS: Enoxaparin 40 MG/0.4 ML Syringe SC (08:18)
[2022-01-23] MEDS: Lisinopril 40 MG Tablet PO (08:18)
[2022-01-23] MEDS: Folic Acid 1 MG Tablet PO (08:18)
[2022-01-23] MEDS: Minoxidil 10 MG Tablet PO (08:18)
[2022-01-23] MEDS: Metoprolol Tartrate 50 MG Tablet PO (08:18)
[2022-01-23] MEDS: Thiamine Hydrochloride 100 MG Tablet PO (08:18)
--- NOTE | 2022-01-23 09:02 | PN.HOSP_ITS ---
Subjective Subjective Feels well. No tremulousness. Anxious to go home. Objective Data Objective Data Vital Signs: Vital Signs Temp Pulse Resp BP Pulse Ox O2 Del Method O2 Flow Rate 37.1 C 91 16 166/77 H 98 Room Air 4 01/23/22 08:15 01/23/22 08:18 01/23/22 08:15 01/23/22 08:18 01/23/22 08:15 01/23/22 08:15 01/22/22 22:00 Oxygen Flow Rate (L/min) 4 Oxygen Delivery Method Room Air Weight: 78.2 kg Body Mass Index (BMI) 25.4 Intake & Output: Intake and Output for Last 24 Hours 01/21/22 01/22/22 01/23/22 23:59 23:59 23:59 Intake Total 454 / 454 Output Total 400 / 400 Balance 54 / 54 Lab / Micro Data Result Diagrams: 01/23/22 05:25 01/23/22 05:25 Labs: Laboratory Results - last 24 hr 01/22/22 17:00: Uric Acid 5.5 01/22/22 17:24: WBC 8.2, RBC 5.48, Hgb 15.2, Hct 44.8, MCV 81.8, MCH 27.7, MCHC 33.9, RDW Std Deviation 40.7, RDW Coeff of Milly 13.8, Plt Count 259, MPV 9.0, Immature Gran % (Auto) 0.900, Neut % (Auto) 88.5 H, Lymph % (Auto) 4.2 L, Hernando % (Auto) 6.1, Eos % (Auto) 0.1, Baso % (Auto) 0.2, Absolute Neuts (auto) 7.2, Absolute Lymphs (auto) 0.34 L, Nucleated RBC % 0, Differential Comment SEE COMMENT, Platelet Estimate ADEQUATE, RBC Morphology N CHROM, Anisocytosis RARE, Microcytosis RARE 01/22/22 17:24: Sodium 125 L, Potassium 3.9, Chloride 87 L, Carbon Dioxide 25.0, Anion Gap 13, BUN 11, Creatinine 0.99, Estim Creat Clear Calc 66.82, Est GFR (MDRD) Af Amer 96, Est GFR (MDRD) Non-Af 80, BUN/Creatinine Ratio 11.1, Glucose 122 H, Calcium 8.9, Total Bilirubin 1.10 H, AST 27, ALT 71 H, Alkaline Phosphatase 130 H, Total Protein 7.7, Albumin 3.7, Globulin 4.0, Albumin/Globulin Ratio 0.9 01/22/22 17:24: Troponin I High Sens 8 01/22/22 17:24: B-Natriuretic Peptide 66.9 01/22/22 18:40: Lactic Acid 0.9 01/22/22 18:44: Ethyl Alcohol 4.0 01/22/22 18:44: Serum Osmolality 254 L 01/22/22 19:00: Urine Color Yellow, Urine Clarity Clear, Urine pH 6.5, Ur Specific [place] 1.015, Urine Protein 100 H, Urine Glucose (UA) Normal, Urine Ketones 150 A*, Urine Occult Blood 25 H, Urine Nitrite Negative, Urine Bilirubin Negative, Urine Urobilinogen 8 H, Ur Leukocyte Esterase Negative, Urine RBC 0-5 SEEN, Urine WBC 0 SEEN, Ur Squamous Epith Cells 0-5 SEEN, Urine Bacteria 1+, Urine Mucus 0 SEEN 01/22/22 20:00: Urine Opiates Screen NEGATIVE, Urine Methadone Screen NEGATIVE, Ur Barbiturates Screen NEGATIVE, Ur Phencyclidine Scrn NEGATIVE, Ur Amphetamines Screen NEGATIVE, MDMA (Ecstasy) Screen POSITIVE H, U Benzodiazepines Scrn NEGA TIVE, Urine Cocaine Screen NEGATIVE, U Cannabinoids Screen NEGATIVE, Ur Drug Screen Comment 01/22/22 20:00: Urine Osmolality 617, Ur Random Sodium 96 01/22/22 20:45: D-Dimer Quant (PE/DVT) 1.44 H* 01/23/22 05:25: WBC 8.8, RBC 5.03, Hgb 14.1, Hct 41.6, MCV 82.7, MCH 28.0, MCHC 33.9, RDW Std Deviation 42.3, RDW Coeff of Milly 14.1, Plt Count 266, MPV 8.9, Immature Gran % (Auto) 0.600, Neut % (Auto) 81.5 H, Lymph % (Auto) 6.3 L, Hernando % (Auto) 11.3 H, Eos % (Auto) 0.0, Baso % (Auto) 0.3, Absolute Neuts (auto) 7.2, Absolute Lymphs (auto) 0.55 L, Nucleated RBC % 0, Differential Comment SCANNED 01/23/22 05:25: Sodium 127 L, Potassium 3.5, Chloride 92 L, Carbon Dioxide 25.0, Anion Gap 10, BUN 8, Creatinine 0.79, Estim Creat Clear Calc 68.74, Est GFR (MDRD) Af Amer 124, Est GFR (MDRD) Non-Af 102, BUN/Creatinine Ratio 10.1, Glucose 95, Calcium 8.3 L, TSH 0.79 01/23/22 05:25: Vitamin B12 227, Vitamin D 25-Hydroxy 21.8, Cortisol 29.00 H Micro: Microbiology 01/22/22 18:53 Blood Culture (Wb) - Venous Blood Culture - Preliminary 01/22/22 18:45 Nasal Secretion SARS-CoV-2 & FLU Antigen (Rapid) - Final Radiography Diagnostic Testing: Radiology Impression Chest X-Ray 01/22/22 17:48 IMPRESSION: There are no acute findings. Electronically Signed: Victor Hugo Ayoub MD at 18:11 EDT , Chest CTA 01/22/22 21:18 IMPRESSION: Normal CTA chest examination, without a demonstrated pulmonary embolism or arterial dissection. No acute cardiopulmonary disease Electronically Signed: Amrit Webber DO at 22:06 EDT , Rhythm Strip Rhythm Strip: Sinus Tach Rate: 110 Ectopy: None Physical Exam Const alert and no apparent distress Resp normal respiratory effort, no retractions and no use of accessory muscles Cardio regular rate, regular rhythm, S1 normal heart sound and S2 normal heart sound GI normal to inspection, nondistended, normoactive bowel sounds and soft to palpat ion Assessment & Plan Assessment/Plan (1) Weakness: PLAN: Likely multifactorial. Seen by therapy--no additional therapy recommended. (2) Hyponatremia: PLAN: Acute on chronic hyponatremia Sodium of 125 on presentation. Chloride is 87. Review of old records shows chronic hyponatremia. Likely secondary to beer potomania Check uric acid Check urine osmolarity Check urine sodium Check serum osmolality. Check TSH and a.m. cortisol. Gentle IV hydration. Trend BMP. (3) Hypertensive urgency: PLAN: Improved Systolic blood pressure of more than 180 on presentation. Home blood pressure medication continued. PRN Hydralazine IV ordered. Trend blood pressures. (4) Syncope: PLAN: Orthostatic vitals negative Echocardiogram: EF 70%. MRI pending (5) Fall: PLAN: PT and OT work with patient for strengthening training. Vitamin D 21.8. Start ergocalciferol PLAN: Plan Alcoholism. Patient reports drinking 2-3 beers now. Reportedly previously he drank about 12 packs. Cannot rule out minimization. Folic acid and thiamine ordered. Check CIWA scores. DVT prophylaxis subcutaneous Lovenox ordered. Charges/Coding Visit Charges Inpatient E&M: 45411 Subs Hosp L2
[2022-01-23] MEDS: LORazepam 0.5 MG Tablet PO (12:44)
--- NOTE | 2022-01-23 12:47 | CASEMGMT ---
YOVANI LARKIN assessment: Face to Face with patient for initial transition planning/care coordination assessment. YOVANI LARKIN introduced self and role at [facility], pt voices understanding and consents to assessment. Pt is A/Ox4 and answers all questions appropriately. Pt is lying in bed in no distress on room air. Care providers, pharmacy,?and demographics verified. ? Presentation: Pt c/o weakness/confusion x 1week, fever, fall, hypoxia via EMS Admitting dx: Hyponatremia, weakness PCP: Mauro Specialists: None Preferred Pharmacy: [facility] Insurance: AeR Prescription Benefit:?AeMCR Living Will/HPOA: Pt does not have LW/HPOA and declines AD info. LNOK: Bibiana Good, ; Dimitri Good, son Living Arrangements: Pt lives with and cares for who is on hospice for pulmonary fibrosis. Pt states does all care for pt and states has been struggling. Pt states has discussed with son and plans to talk to hospice once home to see about getting pt into a facility to care for her. Pt is independent with ADL's. Transportation: Pt drives self and states no transportation concerns. DME/HHC: Pt has access to a cane, walker, and walk-in shower/chair, if needed. Pt declines need for further DME. Pt states no hx of HHC or SNF. Pt states no concerns with going home at time of discharge. Pt is retired. Pt states does not smoke cigarettes or do recreational drugs. Pt states does drink 2-3 beers daily. Pt states has a lot of stress caring for at home and Haley CURRY is aware. Pt voices no further concerns/needs. CM to follow for any further discharge planning/needs. Advised pt to ask for CM if any further questions/concerns/needs arise, voices understanding. Pt Goal: Home ? Plan: [place] YOVANI LARKIN
[2022-01-23] MEDS: 0.9% Saline Lock 10 ML Syringe IV (14:49)
--- NOTE | 2022-01-23 15:59 | DCINST_ITS ---
Discharge Instructions Diet Discharge Diet: - (No alcohol to 1-2 drinks per week. ) Dressing / Incision Call your doctor if you observe: Dizziness and Fainting spells Follow Up Care Test Results: Test results from this visit will be discussed in further detail at your follow- up appointment, if applicable. Discharge Plan Admission Admit Date/Time: 01/23/22 10:28 Primary Reason for Your Visit: syncope. hyponatremia Attending Provider: Dimitri Maravilla Primary Care Provider: Gamaliel Wade Chi Consulting Providers: Uriel Cotton Discharge Orders/Prescriptions Prescriptions: New ergocalciferol (vitamin D2) [Vitamin D2] 1,250 mcg (50,000 unit) Capsule 1,250 mcg PO Q7D Qty: 7 0RF Continued citalopram 40 mg tablet 40 mg PO DAILY Label Comments: TAKE 1 TABLET ORALLY ONCE PER DAY FOR 90 DAYS omeprazole 40 mg capsule,delayed release(DR/EC) 40 mg PO DAILY Label Comments: TAKE 1 CAPSULE BY MOUTH ONCE A DAY FOR 90 DAYS metoprolol tartrate 50 mg tablet 50 mg PO BID Label Comments: TAKE 1 TABLET BY MOUTH TWICE A DAY minoxidil 10 mg tablet 10 mg PO DAILY Label Comments: TAKE 1 TABLET BY MOUTH EVERY DAY lisinopril 40 mg tablet 40 mg PO DAILY Label Comments: TAKE 1 TABLET BY MOUTH TWICE A DAY Referrals / Follow Up: Gamaliel Wade Chi, MD [Primary Care Provider] - Within 2 Weeks Disposition Disposition (needs filled in before D/C Order can be placed): Home, Self Care
--- NOTE | 2022-01-23 16:03 | PCM.DC.SUM ---
Providers Date of Admission: 01/23/22 Primary Care Physician: Dr. Gamaliel Wade MD Reason For Visit: HYPONATREMIA, GEN WEAKNESS Diagnosis Discharge Diagnosis (1) Weakness: Status: Acute Code(s): R53.1 - Weakness Plan: Likely multifactorial. Seen by therapy--no additional therapy recommended. (2) Hyponatremia: Status: Acute Code(s): E87.1 - Hypo-osmolality and hyponatremia Plan: May be SIADH but cannot rule out beer potomania TSH, cortisol WNL. Advised cessation of alcohol. Patient expressed reluctance to do so. Expressed to him the least cut back once or twice per week. (3) Hypertensive urgency: Status: Acute Code(s): I16.0 - Hypertensive urgency Plan: Improved Systolic blood pressure of more than 180 on presentation. Home blood pressure medication continued. PRN Hydralazine IV ordered. Trend blood pressures. (4) Syncope: Status: Acute Code(s): R55 - Syncope and collapse Plan: Orthostatic vitals negative Echocardiogram: EF 70%. MRI negative for stroke (5) Fall: Status: Acute Code(s): W19.XXXA - Unspecified fall, initial encounter Plan: PT and OT work with patient for strengthening training. No additional therapy. Vitamin D 21.8. Start ergocalciferol Plan Alcoholism. Patient reports drinking 2-3 beers now. Reportedly previously he drank about 12 packs. Cannot rule out minimization. Folic acid and thiamine ordered. Check CIWA scores. DVT prophylaxis subcutaneous Lovenox ordered. Patient expressed being very overwhelmed at home. Did express to him that he may be self-medicating with alcohol and recommend seeking counseling. 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 Medications at Discharge Home Medications citalopram 40 mg tablet 40 mg PO DAILY 01/22/22 lisinopril 40 mg tablet 40 mg PO DAILY 01/22/22 metoprolol tartrate 50 mg tablet 50 mg PO BID 01/22/22 minoxidil 10 mg tablet 10 mg PO DAILY 01/22/22 omeprazole 40 mg capsule,delayed release 40 mg PO DAILY 01/22/22 ergocalciferol (vitamin D2) 1,250 mcg (50,000 unit) capsule (Vitamin D2) 1,250 mcg PO Q7D #7 caps 01/23/22 Weight / BMI Weight Weight: 78.2 kg Body Mass Index (BMI) 25.4 ABG / Lab / Microbiology Data Result Diagrams: 01/23/22 05:25 01/23/22 05:25 Laboratory: Laboratory Results - last 24 hr 01/22/22 17:00: Uric Acid 5.5 01/22/22 17:24: WBC 8.2, RBC 5.48, Hgb 15.2, Hct 44.8, MCV 81.8, MCH 27.7, MCHC 33.9, RDW Std Deviation 40.7, RDW Coeff of Milly 13.8, Plt Count 259, MPV 9.0, Immature Gran % (Auto) 0.900, Neut % (Auto) 88.5 H, Lymph % (Auto) 4.2 L, Humphreys % (Auto) 6.1, Eos % (Auto) 0.1, Baso % (Auto) 0.2, Absolute Neuts (auto) 7.2, Absolute Lymphs (auto) 0.34 L, Nucleated RBC % 0, Differential Comment SEE COMMENT, Platelet Estimate ADEQUATE, RBC Morphology N CHROM, Anisocytosis RARE, Microcytosis RARE 01/22/22 17:24: Sodium 125 L, Potassium 3.9, Chloride 87 L, Carbon Dioxide 25.0, Anion Gap 13, BUN 11, Creatinine 0.99, Estim Creat Clear Calc 66.82, Est GFR (MDRD) Af Amer 96, Est GFR (MDRD) Non-Af 80, BUN/Creatinine Ratio 11.1, Glucose 122 H, Calcium 8.9, Total Bilirubin 1.10 H, AST 27, ALT 71 H, Alkaline Phosphatase 130 H, Total Protein 7.7, Albumin 3.7, Globulin 4.0, Albumin/Globulin Ratio 0.9 01/22/22 17:24: Troponin I High Sens 8 01/22/22 17:24: B-Natriuretic Peptide 66.9 01/22/22 18:40: Lactic Acid 0.9 01/22/22 18:44: Ethyl Alcohol 4.0 01/22/22 18:44: Serum Osmolality 254 L 01/22/22 19:00: Urine Color Yellow, Urine Clarity Clear, Urine pH 6.5, Ur Specific [place] 1.015, Urine Protein 100 H, Urine Glucose (UA) Normal, Urine Ketones 150 A*, Urine Occult Blood 25 H, Urine Nitrite Negative, Urine Bilirubin Negative, Urine Urobilinogen 8 H, Ur Leukocyte Esterase Negative, Urine RBC 0-5 SEEN, Urine WBC 0 SEEN, Ur Squamous Epith Cells 0-5 SEEN, Urine Bacteria 1+, Urine Mucus 0 SEEN 01/22/22 20:00: Urine Opiates Screen NEGATIVE, Urine Methadone Screen NEGATIVE, Ur Barbiturates Screen NEGATIVE, Ur Phencyclidine Scrn NEGATIVE, Ur Amphetamines Screen NEGATIVE, MDMA (Ecstasy) Screen POSITIVE H, U Benzodiazepines Scrn NEGATIVE, Urine Cocaine Screen NEGATIVE, U Cannabinoids Screen NEGATIVE, Ur Drug Screen Comment 01/22/22 20:00: Urine Osmolality 617, Ur Random Sodium 96 01/22/22 20:45: D-Dimer Quant (PE/DVT) 1.44 H* 01/23/22 05:25: WBC 8.8, RBC 5.03, Hgb 14.1, Hct 41.6, MCV 82.7, MCH 28.0, MCHC 33.9, RDW Std Deviation 42.3, RDW Coeff of Milly 14.1, Plt Count 266, MPV 8.9, Immature Gran % (Auto) 0.600, Neut % (Auto) 81.5 H, Lymph % (Auto) 6.3 L, Humphreys % (Auto) 11.3 H, Eos % (Auto) 0.0, Baso % (Auto) 0.3, Absolute Neuts (auto) 7.2, Absolute Lymphs (auto) 0.55 L, Nucleated RBC % 0, Differential Comment SCANNED 01/23/22 05:25: Sodium 127 L, Potassium 3.5, Chloride 92 L, Carbon Dioxide 25.0, Anion Gap 10, BUN 8, Creatinine 0.79, Estim Creat Clear Calc 68.74, Est GFR (MDRD) Af Amer 124, Est GFR (MDRD) Non-Af 102, BUN/Creatinine Ratio 10.1, Glucose 95, Calcium 8.3 L, TSH 0.79 01/23/22 05:25: Vitamin B12 227, Vitamin D 25-Hydroxy 21.8, Cortisol 29.00 H Microbiology: Microbiology 01/22/22 18:53 Blood Culture (Wb) - Venous Blood Culture - Preliminary 01/22/22 18:45 Nasal Secretion SARS-CoV-2 & FLU Antigen (Rapid) - Final Radiography Diagnostic Testing: Radiology Impression Chest X-Ray 01/22/22 17:48 IMPRESSION: There are no acute findings. Electronically Signed: Victor Hugo Ayoub MD at 18:11 EDT , Chest CTA 01/22/22 21:18 IMPRESSION: Normal CTA chest examination, without a demonstrated pulmonary embolism or arterial dissection. No acute cardiopulmonary disease Electronically Signed: Amrit RasmussenDO elaina at 22:06 EDT , Echocardiogram 01/22/22 23:36 Interpretation Summary The study was technically difficult. Left ventricular systolic function is normal. The estimated ejection fraction is 70 %. The left atrium is mildly enlarged. There is mild to moderate mitral annular calcification. Tension of the mitral annular calcification onto the base of the posterior mitral valve leaflet. Mild (1+) eccentric mitral valve insufficiency. Trivial tricuspid valve insufficiency. Mild focal aortic valve calcification. Diastolic function is indeterminate. Ordering Physician: Uriel Cotton Referring Physician: Gamaliel Wade Chi Performed By: Loc Reilly RCS Brain MRI 01/23/22 05:55 IMPRESSION: 1. Involutional changes of the brain, as described above. 2. No acute infarct or intracranial hemorrhage 3. A moderate size mucus retention cyst is present in the right frontal sinus. There is moderate to significant opacification of the right mastoid air cells. Electronically Signed: Leland Philippe MD at 15:11 EDT , D/C Instructions Discharge Diet: - (No alcohol to 1-2 drinks per week. ) Call your doctor if you observe: Dizziness and Fainting spells Meaningful Use Info Meaningful Use Diagnoses (Choose all that apply): None applicable Discharge Plan Admission Admit Date/Time: 01/23/22 10:28 Primary Reason for Your Visit: syncope. hyponatremia Attending Provider: Dimitri Maravilla Primary Care Provider: Gamaliel Wade Chi Consulting Providers: Uriel Cotton Discharge Orders/Prescriptions Prescriptions: New ergocalciferol (vitamin D2) [Vitamin D2] 1,250 mcg (50,000 unit) Capsule 1,250 mcg PO Q7D Qty: 7 0RF Continued citalopram 40 mg tablet 40 mg PO DAILY Label Comments: TAKE 1 TABLET ORALLY ONCE PER DAY FOR 90 DAYS omeprazole 40 mg capsule,delayed release(DR/EC) 40 mg PO DAILY Label Comments: TAKE 1 CAPSULE BY MOUTH ONCE A DAY FOR 90 DAYS metoprolol tartrate 50 mg tablet 50 mg PO BID Label Comments: TAKE 1 TABLET BY MOUTH TWICE A DAY minoxidil 10 mg tablet 10 mg PO DAILY Label Comments: TAKE 1 TABLET BY MOUTH EVERY DAY lisinopril 40 mg tablet 40 mg PO DAILY Label Comments: TAKE 1 TABLET BY MOUTH TWICE A DAY Referrals / Follow Up: Gamaliel Wade Chi, MD [Primary Care Provider] - Within 2 Weeks Disposition Disposition (needs filled in before D/C Order can be placed): Home, Self Care Charges/Coding Visit Charges Inpatient E&M: 94065 Disch Hosp
[2022-01-23] MEDS: Ergocalciferol 1.25 MG (50, 000 UNIT) Capsule PO (16:36)
== END 2022-01-23 16:50 | disposition home or self-care (01) | DRG 645 ==
LOC: ED 22:52 → PCU 23:16
PROVIDERS: Admitting Provider Hospitalist; Emergency Provider Emergency Medicine; PCP Family Medicine Geriatric Medicine
DX: E22.2 Syndrome of inappropriate secretion of antidiuretic hormone (principal); F10.20 Alcohol dependence, uncomplicated; I16.0 Hypertensive urgency; I10 Essential (primary) hypertension; S20.211A Contusion of right front wall of thorax, initial encounter; W19.XXXA Unspecified fall, initial encounter; Y90.0 Blood alcohol level of less than 20 mg/100 ml; R09.02 Hypoxemia; R53.1 Weakness; R55 Syncope and collapse; Z63.79 Other stressful life events affecting family and household; Z79.899 Other long term (current) drug therapy; Z87.891 Personal history of nicotine dependence; I08.3 Combined rheumatic disorders of mitral, aortic and tricuspid valves; R00.0 Tachycardia, unspecified
CPT/HCPCS: 36415; 70551; 71045; 71275; 80048; 80053; 80307; 81001; 82077; 82306; 82533; 82607; 83605; 83880; 83930; 83935; 84300; 84443; 84484; 84550; 85025; 85379; 87040; 87077; 87186; 87428; 93005; 93306; 96361; 96372; 96374; 96375; 97161; 97165; 99221; 99285; J7030; J7040; Q9967; A4216; G0378

== ENCOUNTER 2022-01-24 23:25 | Emergency (ER) | payer MEDICARE, SELFPAY ==
[2022-01-24 23:27] VITALS: BP 202/82; PULSE 122; RESP 30; TEMP 37.7; O2SAT 94; BMI 26.0
[2022-01-24 23:33] VITALS: O2SAT 94
--- NOTE | 2022-01-25 00:05 | RAD_ITS ---
STUDY: X-RAY CHEST REASON FOR EXAM: Male, 71 years old. dyspnea TECHNIQUE: PA and lateral views of the chest. COMPARISON: 01/22/2022 FINDINGS: There is hyperinflation of the lungs consistent with chronic obstructive lung disease (COPD). Lungs are clear. Interstitial prominence in the lung bases, likely chronic in nature. Normal size heart. Normal mediastinum and raymond. Normal visualized pulmonary arteries. Normal visualized aortic arch and descending thoracic aorta. Normal visualized thoracic spine. Normal visualized ribs, clavicles, and shoulders. There is no demonstrated abnormality of the visualized soft tissue structures of the upper abdomen. RAD/Chest PA and Lateral IMPRESSION: COPD. Lungs are clear. No acute findings Electronically Signed: Amrit Webber DO at 0:36 EDT ,
--- NOTE | 2022-01-25 00:05 | EKG12_ITS ---
Test Reason : SOB Blood Pressure : / mmHG Vent. Rate : 117 BPM Atrial Rate : 117 BPM P-R Int : 172 ms QRS Dur : 084 ms QT Int : 328 ms P-R-T Axes : 082 067 080 degrees QTc Int : 457 ms Sinus tachycardia Possible Left atrial enlargement Nonspecific ST abnormality Abnormal ECG Confirmed by RONALD RICHEY, DANICA ([id number]), supervising editor news reel RANDY HUFFMAN ([id number]) on 01/26/2022 9:41:25 AM Referred By: [facility] Confirmed By:DANICA CARDENAS MD
[2022-01-25] MEDS: Ipratropium/Albuterol Sulfate 3 ML AMPUL.NEB INHALATION (00:23)
[2022-01-25 00:24] VITALS: PULSE 115; RESP 20
[2022-01-25] MEDS: Ondansetron 4 MG/2 ML Vial IV (00:26)
[2022-01-25] MEDS: fentaNYL 100 MCG/2 ML Ampul 25 MCG IV (00:26)
[2022-01-25 01:03] VITALS: BP 139/66; O2SAT 90
--- NOTE | 2022-01-25 01:11 | EX.ED.DYSGE1 ---
HPI History of Present Illness Chief Complaint: Shortness of Breath Narrative Narrative: Patient is a 71-year-old male with past medical history of hypertension hyponatremia alcohol abuse and previous smoking history. He was discharged from the hospital just yesterday after being admitted for accelerated hypertension and right rib contusion. He was discharged home and states that he was doing well throughout the day but as he laid down to go to bed he began feeling short of breath. He states that there was no chest pain associated with this and he denies any palpitations. He states that EMS was called as his symptoms would not resolve and therefore he was brought to the hospital for further evaluation of his dyspnea [facility] Medical History (Updated 01/25/22 @ 01:[address] Jian Sparks DO) Alcohol abuse Hypertension Vertigo Home Medications citalopram 40 mg tablet 40 mg PO DAILY 01/22/22 [History Last Taken Unknown] lisinopril 40 mg tablet 40 mg PO DAILY 01/22/22 [History Last Taken Unknown] metoprolol tartrate 50 mg tablet 50 mg PO BID 01/22/22 [History Last Taken Unknown] minoxidil 10 mg tablet 10 mg PO DAILY 01/22/22 [History Last Taken Unknown] omeprazole 40 mg capsule,delayed release 40 mg PO DAILY 01/22/22 [History Last Taken Unknown] ergocalciferol (vitamin D2) 1,250 mcg (50,000 unit) capsule (Vitamin D2) 1,250 mcg PO Q7D #7 caps 01/23/22 [Rx Last Taken Unknown] albuterol sulfate 90 mcg/actuation aerosol inhaler (Ventolin HFA) 1 - 2 puff inhalation Q4H PRN PRN Wheezing #1 device 01/25/22 [Rx Last Taken Unknown] oxycodone-acetaminophen 5 mg-325 mg tablet (Endocet) 1 tab PO Q6H PRN pain 3 days #12 tabs 01/25/22 [Rx Last Taken Unknown] Allergy/AdvReac Type Severity Reaction Status Date / Time No Known Allergies Allergy Verified 01/24/22 23:35 Family History (Updated 01/22/22 @ 23:[address] Uriel Cotton MD) Other Dementia Heart disease Surgical History H/O tooth extraction Social History Smoking Status: Former smoker ROS ROS ED Constitutional Constitutional ED: Denies chills or fever(s) ENT ENT ED: Reports rhinorrhea; Denies sore throat Cardiovascular Cardiovascular: Denies chest pain Respiratory/Chest Respiratory/Chest: Reports cough and dyspnea Gastrointestinal Gastrointestinal: Denies abdominal pain, diarrhea, nausea or vomiting Genitourinary Genitourinary ED: Denies dysuria Musculoskeletal Musculoskeletal: Reports other Details: Positive right rib pain ; Denies myalgias Integumentary Denies rash Neurologic Neurologic: Denies headache(s) Hematologic/Lymphatic Hematologic/Lymphatic: Denies easy bleeding or easy bruising EXAM Physical Exam Const Vital Signs: 01/24/22 23:27 01/24/22 23:33 01/25/22 00:24 Temperature 99.9 F H Temperature Source Oral Pulse Rate 122 H 115 H Respiratory Rate 30 H 20 H Respiratory Effort Short of Breath Labored Respiratory Depth Shallow Respiratory Pattern Tachypnea Blood Pressure 202/82 H Blood Pressure Mean 122 Pulse Ox 94 Oxygen Delivery Method Room Air Room Air 01/25/22 01:03 01/25/22 01:19 01/25/22 01:19 Temperature 99 F 99 F Temperature Source Temporal Pulse Rate 112 H 111 H Respiratory Rate 22 H 27 H Respiratory Effort Respiratory Depth Respiratory Pattern Blood Pressure 139/66 H 132/55 H 132/55 H Blood Pressure Mean 90 80 Pulse Ox 90 94 94 Oxygen Delivery Method Room Air Room Air Positive well nourished and well developed General Appearance ED: well developed HEENT Reports moist mucous membranes HEENT Narrative: Cobblestoning the posterior pharynx consistent with sinus drainage without airway edema or compromise. No tongue or lip swelling noted Eyes PERRL and EOMs intact bilaterally Neck supple and no JVD Chest Wall Chest Narrative: There is pain with palpation of the anterior lateral right ribs consistent with his history of rib contusion without bony deformity or crepitance Resp Resp Narrative: Breath sounds are diminished throughout with diffuse inspiratory and expiratory wheezing. Patient has tachypnea without nasal flaring retractions or accessory muscle use Cardio regular rhythm Rate: tachycardic and other Other Details: Radial pulses are plus 2 out of 4 bilaterally are equal and symmetric GI normal to inspection, nondistended, normoactive bowel sounds, non-tender and non-distended Auscultation: hypoactive bowel sounds Palpation: soft Extremity normal to inspection Extremity Narrative: No asymmetric edema no pitting edema negative Homans' sign bilaterally Neuro oriented x3 and CN's II-XII intact bilaterally Sensorium / Orientation: alert Psych mental status grossly normal Skin no rashes or lesions noted MDM MDM MDM Narrative Medical decision making narrative: Patient presented to the ER hypertensive and was satting in the mid 90s on a few liters nasal cannula oxygen which was provided by EMS. He states he does not typically need supplemental oxygen and therefore this was turned off upon arrival. After doing so his pulse ox remained the same. As patient's only complaint was shortness of breath and he had recently been admitted to the hospital with multiple tests performed did not feel the need for laboratory studies. An EKG was obtained which showed sinus tachycardia without dysrhythmia or acute CT changes. A chest x-ray was also added which reveals no obvious infiltrate pneumothorax or pleural effusion. Patient was given pain medication to help with his recent rib contusion and a breathing treatment. After this the patient's pulse ox remained 90 to 93% and he had improvement of his symptoms. Therefore as patient was recently admitted to the hospital and underwent a work-up for his hypertension I do not feel there is need for repeat blood work. As his x-ray does not show pneumonia patient does not need antibiotics and as symptoms have improved with breathing treatments do not feel there is need for readmission and he is otherwise safe for discharge Radiography Diagnostic Testing: Clinical Impression(s) from Imaging Studies Chest X-Ray 01/25/22 00:05 IMPRESSION: COPD. Lungs are clear. No acute findings Electronically Signed: Amrit Webber DO at 0:36 EDT , Chest x-ray as interpreted by the emergency medicine physician reveals hyperinflated lungs consistent with COPD but no acute infiltrate pneumothorax or pleural effusion Discharge Plan Triage Chief Complaint: Shortness of Breath ED Provider: Jian Sparks Dx/Rx/DC Orders Clinical Impression: Asthma exacerbation in COPD, Acute bronchospasm, Rib contusion, Hypertension Instructions: COPD: Wheezing and Chest Tightness Prescriptions: New oxycodone-acetaminophen [Endocet] 5-325 mg tablet 1 tab PO Q6H PRN (Reason: pain) 3 Days Qty: 12 0RF albuterol sulfate [Ventolin HFA] 90 mcg/actuation HFA aerosol inhaler 1 - 2 puff inhalation Q4H PRN PRN (Reason: Wheezing) Qty: 1 1RF No Action citalopram 40 mg tablet 40 mg PO DAILY Label Comments: TAKE 1 TABLET ORALLY ONCE PER DAY FOR 90 DAYS omeprazole 40 mg capsule,delayed release(DR/EC) 40 mg PO DAILY Label Comments: TAKE 1 CAPSULE BY MOUTH ONCE A DAY FOR 90 DAYS metoprolol tartrate 50 mg tablet 50 mg PO BID Label Comments: TAKE 1 TABLET BY MOUTH TWICE A DAY minoxidil 10 mg tablet 10 mg PO DAILY Label Comments: TAKE 1 TABLET BY MOUTH EVERY DAY lisinopril 40 mg tablet 40 mg PO DAILY Label Comments: TAKE 1 TABLET BY MOUTH TWICE A DAY ergocalciferol (vitamin D2) [Vitamin D2] 1,250 mcg (50,000 unit) Capsule 1,250 mcg PO Q7D Qty: 7 0RF Primary Care Provider: Gamaliel Wade Chi Referrals: Gamaliel Wade Chi, MD [Primary Care Provider] - Activity Restrictions/Additional Instructions: Please use your incentive spirometer throughout the day to help prevent splinting and pneumonia. Take the pain medication as directed to help control the pain from your rib contusion and use the inhaler if he has shortness of breath or wheeze. If symptoms are worsening or persisting despite taking her medications please return to the ER for repeat evaluation Disposition Disposition: Home, Self Care Discharge Date/Time: 01/25/22 01:33
[2022-01-25] MEDS: oxyCODONE 5 MG Tablet 10 MG PO (01:17)
[2022-01-25 01:19] VITALS: BP 132/55; PULSE 111; PULSE 112; RESP 22; RESP 27; TEMP 37.2; O2SAT 94
== END 2022-01-25 01:33 | disposition home or self-care (01) ==
PROVIDERS: Emergency Provider Emergency Medicine; PCP Family Medicine Geriatric Medicine; Visit Provider Emergency Medicine
DX: J44.1 Chronic obstructive pulmonary disease with (acute) exacerbation (principal); J98.01 Acute bronchospasm; S20.211A Contusion of right front wall of thorax, initial encounter; X58.XXXA Exposure to other specified factors, initial encounter; I10 Essential (primary) hypertension; F10.10 Alcohol abuse, uncomplicated; Z79.899 Other long term (current) drug therapy; Z87.891 Personal history of nicotine dependence
CPT/HCPCS: 71046; 93005; 94640; 96374; 96375; 99284; A4216; J2405

== ENCOUNTER → 2022-03-29 | Outpatient (CLI) | payer MEDICARE, SELFPAY ==
[2022-03-29 12:32] LABS: Anion Gap 8 (5-15); BUN 10 mg/dL (7-18); BUN/Creat Ratio 9.8 RATIO (10-20); Calcium,Total 9.3 mg/dL (8.5-10.1); Chloride 96 mmol/L (98-107); Creatinine, Serum 1.02 mg/dL (0.70-1.30); EST Glomerular Filtration Rate 77 mL/min (>60); Est Glom Filt Rate - Afr Amer 93 mL/min (>60); Glucose 122 mg/dL (74-106); Potassium 3.8 mmol/L (3.5-5.1); Sodium Level 135 mmol/L (136-145)
== END | disposition home or self-care (01) ==
LOC: POLAB3 11:13
PROVIDERS: PCP Family Medicine Geriatric Medicine; Visit Provider Internal Medicine Nephrology
DX: E87.1 Hypo-osmolality and hyponatremia (principal)
CPT/HCPCS: 36415; 80048

== ENCOUNTER → 2022-08-27 | Outpatient (CLI) | payer MEDICARE, SELFPAY ==
[2022-08-27 13:04] LABS: Absolute Lymphocyte Count 1.33 X10^3/uL (0.83-4.51); Absolute Neutrophil Count 7.2 X10^3/uL (2.0-7.7); Basophil# 0.06 X10^3/uL; Basophil% 0.6 % (0-1); Eosinophil# 0.05 X10^3/uL; Eosinophils% 0.5 % (0-5); Hematocrit 51.1 % (40-54); Hemoglobin 16.7 g/dL (13.0-16.5); Lymphocyte # 1.33 X10^3/ul (0.83-4.51); Lymphocyte % 14.1 % (19-41); Mean Corp Hgb Conc 32.7 g/dL (32-36); Mean Corpuscular Hgb 30.8 pg (27.0-32.0); Mean Corpuscular Volume 94.3 fL (80-94); Mean Platelet Vol. 9.7 fl (6.2-12.0); Monocyte# 0.69 X10^3/uL; Monocyte% 7.3 % (0-10); NRBC Flagged by Analyzer 0 % (0-5); Neutrophil # 7.23 X10^3/uL (2.7-7.7); Neutrophil % 76.7 % (47-70); Platelet Count 389 K/mm3 (150-450); RBC Distribution Width CV 13.1 % (11.6-14.6); RBC Distribution Width SD 44.9 fl (35.1-43.9); Red Blood Count 5.42 M/mm3 (4.6-6.2); White Blood Count 9.4 K/mm3 (4.4-11.0)
[2022-08-27 13:16] LABS: Vitamin D,25 Hydroxy 37.9 ng/mL
[2022-08-27 13:28] LABS: ALB/GLOB Ratio 1.1 RATIO (0.9-2.4); AST(SGOT) 33 U/L (15-37); Alanine Aminotransfer ALT/SGPT 65 U/L (16-61); Albumin, Serum 4.4 g/dL (3.2-5.0); Alkaline Phosphatase 97 U/L (45-117); Anion Gap 7 (5-15); BUN 9 mg/dL (7-18); BUN/Creat Ratio 10.8 RATIO (10-20); Calcium,Total 9.7 mg/dL (8.5-10.1); Chloride 98 mmol/L (98-107); Creatinine, Serum 0.84 mg/dL (0.70-1.30); EST Glomerular Filtration Rate 97 mL/min (>60); Est Glom Filt Rate - Afr Amer 117 mL/min (>60); Globulin 4.1 g/dL (2.2-4.2); Glucose 158 mg/dL (74-106); Potassium 3.7 mmol/L (3.5-5.1); Protein, Total 8.5 g/dL (6.4-8.2); Sodium Level 136 mmol/L (136-145); Thyroid Stim Hormone (TSH) 0.87 uIU/mL (0.358-3.74)
== END | disposition home or self-care (01) ==
LOC: POLAB3 10:04
PROVIDERS: PCP Family Medicine Geriatric Medicine; Visit Provider Internal Medicine Nephrology
DX: I10 Essential (primary) hypertension (principal); E55.9 Vitamin D deficiency, unspecified
CPT/HCPCS: 36415; 80053; 82306; 84443; 85025

== ENCOUNTER → 2022-11-26 | Outpatient (CLI) | payer MEDICARE, SELFPAY ==
[2022-11-26 12:40] LABS: Vitamin D,25 Hydroxy 36.9 ng/mL
[2022-11-26 12:49] LABS: AST(SGOT) 16 U/L (15-37); Alanine Aminotransfer ALT/SGPT 30 U/L (16-61); Albumin, Serum 4.1 g/dL (3.2-5.0); Alkaline Phosphatase 87 U/L (45-117); Anion Gap 9 (5-15); BUN 7 mg/dL (7-18); BUN/Creat Ratio 7.6 RATIO (10-20); Calcium,Total 9.2 mg/dL (8.5-10.1); Chloride 92 mmol/L (98-107); Creatinine, Serum 0.92 mg/dL (0.70-1.30); EST Glomerular Filtration Rate 87 mL/min (>60); Est Glom Filt Rate - Afr Amer 105 mL/min (>60); Glucose 115 mg/dL (74-106); Potassium 4.2 mmol/L (3.5-5.1); Protein, Total 8.1 g/dL (6.4-8.2); Sodium Level 129 mmol/L (136-145); Thyroid Stim Hormone (TSH) 1.04 uIU/mL (0.358-3.74)
[2022-11-26 12:59] LABS: Absolute Neutrophil Count 6.1 X10^3/uL (2.0-7.7); Basophil# 0.06 X10^3/uL; Basophil% 0.8 % (0-1); Eosinophil# 0.02 X10^3/uL; Eosinophils% 0.3 % (0-5); Hematocrit 50.3 % (40-54); Hemoglobin 16.5 g/dL (13.0-16.5); Mean Corp Hgb Conc 32.8 g/dL (32-36); Mean Corpuscular Hgb 29.7 pg (27.0-32.0); Mean Corpuscular Volume 90.6 fL (80-94); Mean Platelet Vol. 9.1 fl (6.2-12.0); Monocyte# 0.49 X10^3/uL; Monocyte% 6.4 % (0-10); NRBC Flagged by Analyzer 0 % (0-5); Platelet Count 381 K/mm3 (150-450); RBC Distribution Width CV 12.6 % (11.6-14.6); RBC Distribution Width SD 41.9 fl (35.1-43.9); Red Blood Count 5.55 M/mm3 (4.6-6.2); White Blood Count 7.7 K/mm3 (4.4-11.0)
== END | disposition home or self-care (01) ==
PROVIDERS: PCP Family Medicine Geriatric Medicine; Referring Provider Family Medicine Geriatric Medicine; Visit Provider Family Medicine Geriatric Medicine
DX: I10 Essential (primary) hypertension (principal); E55.9 Vitamin D deficiency, unspecified
CPT/HCPCS: 36415; 80053; 82306; 84443; 85025

== ENCOUNTER → 2023-09-16 | Outpatient (CLI) | payer MEDICARE, SELFPAY ==
[2023-09-16 10:59] LABS: Absolute Lymphocyte Count 1.01 X10^3/uL (0.83-4.51); Absolute Neutrophil Count 6.5 X10^3/uL (2.0-7.7); Basophil# 0.07 X10^3/uL; Basophil% 0.8 % (0-1); Eosinophils% 3.5 % (0-5); Hematocrit 45.5 % (40-54); Hemoglobin 15.4 g/dL (13.0-16.5); Lymphocyte # 1.01 X10^3/ul (0.83-4.51); Lymphocyte % 11.7 % (19-41); Mean Corp Hgb Conc 33.8 g/dL (32-36); Mean Corpuscular Hgb 30.4 pg (27.0-32.0); Mean Corpuscular Volume 89.7 fL (80-94); Mean Platelet Vol. 9.1 fl (6.2-12.0); Monocyte# 0.69 X10^3/uL; NRBC Flagged by Analyzer 0 % (0-5); Neutrophil % 75.3 % (47-70); Platelet Count 366 K/mm3 (150-450); RBC Distribution Width CV 12.1 % (11.6-14.6); RBC Distribution Width SD 39.9 fl (35.1-43.9); Red Blood Count 5.07 M/mm3 (4.6-6.2); White Blood Count 8.6 K/mm3 (4.4-11.0)
[2023-09-16 11:20] LABS: Vitamin D,25 Hydroxy 61.1 ng/mL
[2023-09-16 11:30] LABS: ALB/GLOB Ratio 1.1 RATIO (0.9-2.4); AST(SGOT) 19 U/L (15-37); Alanine Aminotransfer ALT/SGPT 45 U/L (16-61); Alkaline Phosphatase 77 U/L (45-117); Anion Gap 5 (5-15); BUN 15 mg/dL (7-18); Calcium,Total 8.9 mg/dL (8.5-10.1); Chloride 95 mmol/L (98-107); Creatinine, Serum 0.94 mg/dL (0.70-1.30); EST Glomerular Filtration Rate 84 mL/min (>60); Est Glom Filt Rate - Afr Amer 102 mL/min (>60); Globulin 3.5 g/dL (2.2-4.2); Glucose 127 mg/dL (74-106); Potassium 4.2 mmol/L (3.5-5.1); Protein, Total 7.5 g/dL (6.4-8.2); Sodium Level 128 mmol/L (136-145); Thyroid Stim Hormone (TSH) 0.91 uIU/mL (0.358-3.74)
== END | disposition home or self-care (01) ==
PROVIDERS: PCP Family Medicine Geriatric Medicine; Referring Provider Family Medicine Geriatric Medicine; Visit Provider Family Medicine Geriatric Medicine
DX: I10 Essential (primary) hypertension (principal); E55.9 Vitamin D deficiency, unspecified
CPT/HCPCS: 36415; 80053; 82306; 84443; 85025

== ENCOUNTER → 2023-12-24 | Outpatient (CLI) | payer MEDICARE, SELFPAY ==
[2023-12-24 13:20] LABS: Absolute Lymphocyte Count 1.17 X10^3/uL (0.83-4.51); Absolute Neutrophil Count 5.8 X10^3/uL (2.0-7.7); Basophil# 0.05 X10^3/uL; Basophil% 0.6 % (0-1); Eosinophil# 0.09 X10^3/uL; Eosinophils% 1.1 % (0-5); Hematocrit 45.5 % (40-54); Hemoglobin 15.3 g/dL (13.0-16.5); Lymphocyte # 1.17 X10^3/ul (0.83-4.51); Lymphocyte % 14.9 % (19-41); Mean Corp Hgb Conc 33.6 g/dL (32-36); Mean Corpuscular Hgb 29.5 pg (27.0-32.0); Mean Corpuscular Volume 87.8 fL (80-94); Mean Platelet Vol. 9.4 fl (6.2-12.0); Monocyte# 0.66 X10^3/uL; Monocyte% 8.4 % (0-10); NRBC Flagged by Analyzer 0 % (0-5); Neutrophil # 5.82 X10^3/uL (2.7-7.7); Neutrophil % 74.4 % (47-70); Platelet Count 364 K/mm3 (150-450); RBC Distribution Width CV 13.6 % (11.6-14.6); RBC Distribution Width SD 43.8 fl (35.1-43.9); Red Blood Count 5.18 M/mm3 (4.6-6.2); White Blood Count 7.8 K/mm3 (4.4-11.0)
[2023-12-24 13:57] LABS: Vitamin D,25 Hydroxy 45.2 ng/mL
[2023-12-24 14:06] LABS: AST(SGOT) 15 U/L (15-37); Alanine Aminotransfer ALT/SGPT 29 U/L (16-61); Alkaline Phosphatase 81 U/L (45-117); Anion Gap 7 (5-15); BUN 10 mg/dL (7-18); BUN/Creat Ratio 10.2 RATIO (10-20); Calcium,Total 9.1 mg/dL (8.5-10.1); Chloride 95 mmol/L (98-107); Creatinine, Serum 0.98 mg/dL (0.70-1.30); EST Glomerular Filtration Rate 79 mL/min (>60); Est Glom Filt Rate - Afr Amer 96 mL/min (>60); Globulin 3.9 g/dL (2.2-4.2); Glucose 110 mg/dL (74-106); Potassium 4.1 mmol/L (3.5-5.1); Protein, Total 7.9 g/dL (6.4-8.2); Sodium Level 131 mmol/L (136-145); Thyroid Stim Hormone (TSH) 1.17 uIU/mL (0.358-3.74)
== END | disposition home or self-care (01) ==
PROVIDERS: PCP Family Medicine Geriatric Medicine; Referring Provider Family Medicine Geriatric Medicine; Visit Provider Family Medicine Geriatric Medicine
DX: Z12.5 Encounter for screening for malignant neoplasm of prostate (principal); I10 Essential (primary) hypertension; E55.9 Vitamin D deficiency, unspecified
CPT/HCPCS: 36415; 80053; 82306; 84153; 84443; 85025; G0103

== ENCOUNTER → 2024-06-23 | Outpatient (CLI) | payer MEDICARE, SELFPAY | END | disposition home or self-care (01) | LOC: POLAB3 10:42 → LAB.FUTURE 15:13 | PROVIDERS: PCP Family Medicine Geriatric Medicine; Visit Provider Family Medicine Geriatric Medicine | DX: I10 Essential (primary) hypertension (principal); E55.9 Vitamin D deficiency, unspecified ==